=== PATIENT | male | born 1945 | race Caucasian/White ===

== ENCOUNTER 2016-12-09 10:59 | Inpatient (IN) | payer OTHER ==
[2016-12-09 11:26] VITALS: BMI 29.2
--- NOTE | 2016-12-09 11:34 | PDOC ---
History of Present Illness - General Chief Complaint: Wound Infection Stated Complaint: ADMIT FOR PRE-OP, LT FOOT (WOUND CARE SENT) Time Seen by Provider: 12/09/16 11:32 - History of Present Illness Initial Comments: 12/09/16 11:37 Mr. Villa is a 71 year old male with a past medical history significant for PAD, diabetes, HTN, CHF, ESRD on dialysis M-Thu-Thu, CAD with 7 stents, BPH. The pt was scheduled for vascular surgery: angiogram/angioplasty on RLE today but was called yesterday that he needs to have cardiology clearance. The pt contacted his surgeon who referred him to the hospital. The pt is complaining of right foot pain in first, second and third finger and pain in his left heel. He is unable to walk. The pt denies chest pain, palpitations, SOB. He denies abdominal pain, N/V, diarrhea, constipation. He denies dysuria, fever, chills. Past History - Past Medical History Allergies/Adverse Reactions: Allergies Allergy/AdvReac Type Severity Reaction Status Date / Time No Known Allergies Allergy Verified 12/09/16 11:20 Home Medications: Ambulatory Orders Clopidogrel Bisulfate [Plavix -] 75 mg PO DAILY 10/29/15 Aspirin [Indra Chewable Aspirin] 81 mg PO DAILY #30 tab.chew 11/08/15 Isosorbide Dinitrate [Isordil -] 40 mg PO DAILY #30 tablet.er 11/08/15 Metoprolol Tartrate [Lopressor -] 50 mg PO BID #30 tablet 11/08/15 Tamsulosin HCl 0.4 mg PO DAILY #30 cap.er.24h 11/08/15 Glipizide 2.5 mg PO DAILY #30 tablet 11/23/15 Sennosides/Docusate Sodium [Senna S Tablet] 1 each PO DAILY PRN 11/28/15 Lisinopril [Prinivil] 40 mg PO DAILY #30 tablet 08/19/16 Simvastatin [Zocor -] 20 mg PO HS #30 tablet 08/21/16 Becaplermin [Regranex] 15 gm TP DAILY #1 gel..gram. 10/17/16 Collagenase Clostridium Hist. [Santyl] 1 applic TP DAILY 12/08/16 Diphenhydramine HCl [Benadryl -] 25 mg PO Q6H 12/08/16 Famotidine [Pepcid] 20 mg PO PRN 12/08/16 Anemia: No Asthma: No Cancer: No Cardiac Disorders: Yes (7 stents) CVA: No COPD: No CHF: No Dementia: No Diabetes: Yes Dialysis: Yes (RSC catheter) GI Disorders: No Disorders: No HTN: Yes Hypercholesterolemia: Yes Liver Disease: No Seizures: No Thyroid Disease: No - Surgical History Abdominal Surgery: No Appendectomy: No Cardiac Surgery: Yes (card stent x 7) Cholecystectomy: No Lung Surgery: No Neurologic Surgery: No Orthopedic Surgery: No - Immunization History Immunization Up to Date: Yes - Psycho/Social/Smoking Cessation Hx Anxiety: No Suicidal Ideation: No Smoking History: Former smoker Have you smoked in the past 12 months: No Number of Cigarettes Smoked Daily: 6 If you are a former smoker, when did you quit?: 1 year ago Information on smoking cessation initiated: No 'Breaking Loose' booklet given: 11/28/15 Hx Alcohol Use: No Drug/Substance Use Hx: No Substance Use Type: None Hx Substance Use Treatment: No Review of Systems - Review of Systems Able to Perform ROS?: Yes (Maltese speaking ) Comments:: 12/09/16 11:57 REVIEW OF SYSTEMS CONSTITUTIONAL: Absent: fever, chills, diaphoresis, generalized weakness HEENT: Absent: rhinorrhea, nasal congestion, throat pain, throat swelling CARDIOVASCULAR: Absent: chest pain, syncope, palpitations, irregular heart rate, lightheadedness , peripheral edema RESPIRATORY: Absent: cough, shortness of breath, dyspnea with exertion, orthopnea, wheezing, stridor, hemoptysis GASTROINTESTINAL: Absent: abdominal pain, abdominal distension, nausea, vomiting, diarrhea, constipation, melena, hematochezia GENITOURINARY: Absent: dysuria, frequency, urgency, hesitancy, hematuria, flank pain, genital pain MUSCULOSKELETAL: pain in right toe, second and third finger, no pain in left heel Absent: myalgia, arthralgia, joint swelling, back pain, neck pain SKIN: rash, itching in UE B/l Absent: pallor NEUROLOGIC: Absent: headache, focal weakness or paresthesias, dizziness, unsteady gait Is the patient limited Irish proficient: Yes *Physical Exam - Vital Signs Last Vital Signs Temp Pulse Resp BP Pulse Ox 98.3 F 71 19 129/53 98 12/09/16 11:20 12/09/16 11:20 12/09/16 11:20 12/09/16 11:20 12/09/16 11:20 - Physical Exam Comments: 12/09/16 11:59 GENERAL: The patient is awake, alert, and fully oriented, in no acute distress. HEAD: Normal with no signs of trauma. EYES: extraocular movements intact, sclera anicteric, conjunctiva clear. ENT: oropharynx clear without exudates, moist mucous membranes. NECK: Trachea midline, full range of motion, supple. LUNGS: Breath sounds equal, clear to auscultation bilaterally, no wheezes, no crackles, no accessory muscle use. HEART: Regular rate and rhythm, S1, S2 without murmur, rub or gallop. ABDOMEN: Soft, nontender, nondistended, normoactive bowel sounds, no guarding, no rebound. EXTREMITIES: no pulses in LE B/L, warm, erythema in right toe, second finger and dark brown third finger with 1 cm necrotic tissue, all three fingers are swollen and tender to palpation, no crepitus, healing wound in left heel NEUROLOGICAL: Normal speech, no facial asymmetry, gait not observed. PSYCH: Normal mood, normal affect. SKIN: Warm, dry, normal turgor, rash in UE B/L. ED Treatment Course - LABORATORY CBC & Chemistry Diagram: 12/09/16 12:40 12/09/16 12:40 Medical Decision Making - Medical Decision Making 12/09/16 12:04 The pt present to ED for pre-op. We ordered CBC, CMP, UA, PT/PTT, EKG, called cardiology consultation, nephrology consultation. 12/09/16 13:11 Called hospitalist for admission. Dr. Atkins accepted the pt. Waiting for the laboratory results. *DC/Admit/Observation/Transfer Diagnosis at time of Disposition: PAD (peripheral artery disease) - Discharge Dispostion Condition at time of disposition: Good Admit: Yes
--- NOTE | 2016-12-09 12:47 | PDOC ---
Attending Attestation - Resident Resident Name: Jeanette Kline - ED Attending Attestation I have performed the following: I have examined & evaluated the patient, The case was reviewed & discussed with the resident, I agree w/resident's findings & plan - HPI HPI: 12/09/16 12:43 71-year-old male with past medical history of hypertension, CK D on dialysis Thursday and Thursday, he did have a full dialysis yesterday Diabetes hypertension, CAD with 7 stents He also has PAD, and did have a angioplasty on his left lower extremity He does have a chronic heel wound, which has been gradually improving since July with skin grafts and hyperbaric oxygen therapy He also has PAD of his right lower extremity, and is having increasing pain in his toes He is supposed to have angioplasty or stent in his right lower extremity, and a redo of his left lower extremity He was sent in for admission for Dr. Hall for vascular surgery Will need preop clearance and nephrology clearance - Physicial Exam PE: 12/09/16 12:45 Physical exam is significant for Last Vital Signs Temp Pulse Resp BP Pulse Ox 98.3 F 71 19 129/53 98 12/09/16 11:20 12/09/16 11:20 12/09/16 11:20 12/09/16 11:20 12/09/16 11:20 Patient is alert and answering questions, and in no acute distress Right lower extremity 3 toes are cool, tender, and erythematous, with some necrosis starting on the third toe No dorsalis pedis pulses palpable on the right foot Left foot There is a healing heel ulcer The toes are not necrotic No dorsalis pedis pulse is palpable on the left foot (this is chronic as per pt and son, and the pt came from vascular surgery office where he had a pulse exam) - Medical Decision Making 12/09/16 13:48 EKG Normal sinus rhythm 64, normal axis First degree AV block Normal QRS duration Normal QTC There are inferolateral ST-T wave abnormalities, without reciprocal changes When compared to the EKG of 12/04/16 Today's EKG is essentially unchanged from the prior EKG Impression- Right lower extremity chronic limb ischemia with early toe dry gangrene Chronic bilateral lower extremity peripheral arterial disease
--- NOTE | 2016-12-09 12:53 | CON.CARD ---
Consult Consult Specialty:: cardiology Reason for Consultation:: pre-op clearance; (PAD: vascular procedure--for possible right LE angioplasty) - History of Present Illness Chief Complaint: Pt denies chest pain or LE pain presently. History of Present Illness: Mr. Villa is a 71 year old male with a past medical history significant for PAD, diabetes, HTN, diastolic CHF, ESRD on dialysis M-Thu-Thu, CAD with 9 stents , DM, BPH. The pt was scheduled for vascular surgery: angiogram/angioplasty on RLE today but was called yesterday that he needs to have cardiology clearance. The pt contacted his surgeon who referred him to the hospital. The pt is complaining of right foot pain in first, second and third finger and pain in his left heel. He is unable to walk. The pt denies chest pain, palpitations, SOB. He denies abdominal pain, N/V, diarrhea, constipation. He denies dysuria, fever, chills. - History Source History Provided By: Patient, Medical Record - Past Medical History Cardio/Vascular: Yes: CAD, CHF, HTN, Hyperlipdemia, Other (ESRD-->HD; PAD) Renal/: Yes: Renal Inusuff, BPH - Past Surgical History Past Surgical History: Yes: AV Fistula/Graft - Alcohol/Substance Use Hx Alcohol Use: No History of Substance Use: reports: None - Smoking History Smoking history: Former smoker Have you smoked in the past 12 months: No Aproximately how many cigarettes per day: 6 If you are a former smoker, when did you quit?: 1 year ago - Social History Usual Living Arrangement: With Spouse ADL: Family Assistance History of Recent Travel: No Home Medications - Allergies Allergies/Adverse Reactions: Allergies Allergy/AdvReac Type Severity Reaction Status Date / Time No Known Allergies Allergy Verified 12/09/16 11:20 - Home Medications Home Medications: Ambulatory Orders Clopidogrel Bisulfate [Plavix -] 75 mg PO DAILY 10/29/15 Aspirin [Indra Chewable Aspirin] 81 mg PO DAILY #30 tab.chew 11/08/15 Isosorbide Dinitrate [Isordil -] 40 mg PO DAILY #30 tablet.er 11/08/15 Metoprolol Tartrate [Lopressor -] 50 mg PO BID #30 tablet 11/08/15 Tamsulosin HCl 0.4 mg PO DAILY #30 cap.er.24h 11/08/15 Glipizide 2.5 mg PO DAILY #30 tablet 11/23/15 Sennosides/Docusate Sodium [Senna S Tablet] 1 each PO DAILY PRN 11/28/15 Lisinopril [Prinivil] 40 mg PO DAILY #30 tablet 08/19/16 Simvastatin [Zocor -] 20 mg PO HS #30 tablet 08/21/16 Becaplermin [Regranex] 15 gm TP DAILY #1 gel..gram. 10/17/16 Collagenase Clostridium Hist. [Santyl] 1 applic TP DAILY 12/08/16 Diphenhydramine HCl [Benadryl -] 25 mg PO Q6H 12/08/16 Famotidine [Pepcid] 20 mg PO PRN 12/08/16 Review of Systems - Review of Systems Constitutional: reports: No Symptoms Eyes: reports: No Symptoms HENT: reports: No Symptoms Neck: reports: No Symptoms Cardiovascular: reports: No Symptoms Respiratory: reports: No Symptoms Gastrointestinal: reports: No Symptoms Genitourinary: reports: Frequency Breasts: reports: No Symptoms Reported Musculoskeletal: reports: Muscle Weakness Integumentary: reports: No Symptoms Neurological: reports: No Symptoms Endocrine: reports: No Symptoms Hematology/Lymphatic: reports: No Symptoms Psychiatric: reports: No Symptoms - Risk Factors Known Risk Factors: Yes: Age, Diabetes Mellitus, Gender, Hypercholesterolemia, Hypertension, Physical Inactivity, Other (CAD-->multiple stents; PAD; ESRD-->HD) Vital Signs: Vital Signs Temperature 98.3 F 12/09/16 11:20 Pulse Rate 71 12/09/16 11:20 Respiratory Rate 19 12/09/16 11:20 Blood Pressure 129/53 12/09/16 11:20 O2 Sat by Pulse Oximetry (%) 98 12/09/16 11:20 Constitutional: Yes: Well Nourished, Calm Eyes: Yes: WNL HENT: Yes: WNL Neck: Yes: WNL Respiratory: Yes: WNL Gastrointestinal: Yes: Soft Renal/: No: Anuria Cardiovascular: Yes: Regular Rate and Rhythm Heart Sounds: Yes: S1 (split), S2, S4 Murmur: Yes: Systolic Murmur, Grade 1 Musculoskeletal: Yes: Muscle Weakness Extremities: Yes: Cool Edema: No Peripheral Pulses WNL: No Peripheral Pulses: 1+ Left Doralis Pedis, 1+ Right Dorsalis Pedis Integumentary: Yes: WNL Neurological: Yes: WNL Psychiatric: Yes: WNL - Other Data Echo: Report Reviewed (normal LVEF; atheromatous plaque in aortic arch and proximal descending aorta) Ejection Fraction %: LVEF > or = 40 % Imaging - Results EKG: Image Reviewed (NSR; 1st degree AVB; T wave inversions laterally) Problem List - Problems (1) PAD (peripheral artery disease) Code(s): I73.9 - PERIPHERAL VASCULAR DISEASE, UNSPECIFIED (2) BPH (benign prostatic hypertrophy) Code(s): N40.0 - BENIGN PROSTATIC HYPERPLASIA WITHOUT LOWER URINRY TRACT SYMP (3) Coronary artery disease Assessment/Plan: EKG: NSR; 1st degree AVB; T wave changes infero-laterally. TNI 0.02. TENA ECHO 01/2016 (done to r/o endocarditis): normal LVEF; non-mobile large atheromatous plaques in aortic arch and proximal descending aorta; no thrombi in LA or AUNG; mild MR and TR. Recommend: F/u lipid panel; would use high-dose atorvastatin to aggressively lower LDL and triglycerides in light of pt's hx of CAD/PAD, and because of atheromatous plaques. F/u clinical hx from pt, family; and angiograms/PCI to aid in deciding whether to obtain stress MIBI before angiogram/angioplasty of LE. Code(s): I25.10 - ATHSCL HEART DISEASE OF [place] CORONARY ARTERY W/O ANG PCTRS (4) Diabetes mellitus Assessment/Plan: In view of pt's severe vasculopathy, would strongly consider starting empagliaflozin (Jardience) for diabetes because of potential in lowering future cardiac events. Code(s): E11.9 - TYPE 2 DIABETES MELLITUS WITHOUT COMPLICATIONS (5) ESRD (end stage renal disease) Code(s): N18.6 - END STAGE RENAL DISEASE (6) Hyperlipidemia Code(s): E78.5 - HYPERLIPIDEMIA, UNSPECIFIED Qualifiers: Hyperlipidemia type: unspecified Qualified Code(s): E78.5 - Hyperlipidemia, unspecified (7) Hypertension Code(s): I10 - ESSENTIAL (PRIMARY) HYPERTENSION
--- NOTE | 2016-12-09 12:56 | PN ---
Progress Note (short form) - Note Progress Note: Vascular surgery Pt well known to vascular clinic Was scheduled for right lower ext angioplasty yest. However was cancelled due to lack of medical/cardiology clearance. Pt could not get a outpt cardiology appt anywhere and decided to come to the ER. Pt is a dialysis pt, Dr. Humphries is his weather anchor. Will do right lower ext angiogram once pt is cleared by cardiology Will tentatively book for thurs. Kanu Hall DO
[2016-12-09 13:18] LABS: MCH 28.7 pg (25.7-33.7); MCHC 32.3 g/dl (32.0-35.9); MEAN CELL VOLUME 88.8 fl (80-96); MEAN PLT VOLUME 10.1 fl (7.5-11.1); PLATELET COUNT 208 K/MM3 (134-434); RDW 14.8 % (11.9-15.9); WHITE BLOOD COUNT 10.9 K/mm3 (4.0-10.0)
[2016-12-09 13:32] LABS: INR 1.14 (0.82-1.09); PROTHROMBIN TIME (PATIENT) 12.6 SEC (9.98-11.88)
--- NOTE | 2016-12-09 13:41 | PN ---
Teaching Attending Note Name of Resident: Kori Patterson ATTENDING PHYSICIAN STATEMENT I saw and evaluated the patient. I reviewed the resident's note and discussed the case with the resident. I agree with the resident's findings and plan as documented. SUBJECTIVE: The patient is a 71 year old male with a significant past medical history significant of hypertension, hyperlipidemia, coronary artery disease, congestive heart failure, type two diabetes, ESRD (dialysis MWF), previous revascularization of LLE (Dr. Bahena) who was sent to the ED for admission at the encouragement of dr. bahena for anticipated revascularization of RLE due to right 3rd toe pain and purple discoloration, suspected to be early dry gangrene. OBJECTIVE: He is well appearing and in no acute distress Vitals noted DP and PT pulses non-palpable in bilateral lower extremities (this is chronic as per pt and son, and the pt came from vascular surgery office where he had a pulse exam) CBC noted EKG, CXR and chemistries pending ASSESSMENT AND PLAN: -Right lower extremity chronic limb ischemia with early toe dry gangrene Cardiology to see for pre-operative evaluation Dr. Baehna anticipates RLE angiogram followed by intended revascularization Will add CPK and Lactate to assess degree of limb ischemia Will cover with Zosyn and Vancomycin if he develops leukocytosis, fever or worsening toe findings -Renal Dialysis as per renal See resident note for full details
[2016-12-09 13:47] LABS: ALBUMIN 3.4 g/dl (3.4-5.0); BILIRUBIN,TOTAL 0.5 mg/dL (0.2-1.0); CREATININE 5.4 mg/dL (0.7-1.3); TOT PROT 6.5 g/dl (6.4-8.2)
[2016-12-09] MEDS ORDERED: SENNOSIDES/DOCUSATE COMBO (SENNA PLUS) TABLET (UD) PO PRN (14:26)
[2016-12-09] MEDS ORDERED: diphenhydrAMINE HCL 25 MG CAPSULE (FP) PO PRN (14:30)
[2016-12-09 14:59] LABS: TROPONIN I 0.02 ng/ml (0.00-0.05)
[2016-12-09] MEDS: TAMSULOSIN HCL 0.4 MG CAP.ER.24H (FP) PO SCH (16:19)
--- NOTE | 2016-12-09 16:47 | CONSULT ---
Consult Consult Specialty:: Nephrology Reason for Consultation:: ESRD - History of Present Illness Chief Complaint: right leg 3rd digit ulcer History of Present Illness: Pt is a 71 year old male with pmhs of HTN, DM, ESRD, PVD and CAD who was sent in to the hospital for worsening right leg ischemia. He follows with Dr Hall. I was called to evaluate him for HD as he is an ESRD pt. Pt is awake and alert. He denies shortness of breath or palpitations. He last dialyzed yesterday. He denies fevers or chills. - History Source History Provided By: Patient - Past Medical History Cardio/Vascular: Yes: CAD, CHF, HTN, Hyperlipdemia, Other (ESRD-->HD) Renal/: Yes: Renal Inusuff, BPH - Past Surgical History Past Surgical History: Yes: AV Fistula/Graft - Alcohol/Substance Use Hx Alcohol Use: No History of Substance Use: reports: None - Smoking History Smoking history: Former smoker Have you smoked in the past 12 months: No Aproximately how many cigarettes per day: 6 If you are a former smoker, when did you quit?: 1 year ago - Social History Usual Living Arrangement: With Spouse ADL: Family Assistance History of Recent Travel: No Home Medications - Allergies Allergies/Adverse Reactions: Allergies Allergy/AdvReac Type Severity Reaction Status Date / Time No Known Allergies Allergy Verified 12/09/16 11:20 - Home Medications Home Medications: Ambulatory Orders Clopidogrel Bisulfate [Plavix -] 75 mg PO DAILY 10/29/15 Aspirin [Indra Chewable Aspirin] 81 mg PO DAILY #30 tab.chew 11/08/15 Isosorbide Dinitrate [Isordil -] 40 mg PO DAILY #30 tablet.er 11/08/15 Metoprolol Tartrate [Lopressor -] 50 mg PO BID #30 tablet 11/08/15 Tamsulosin HCl 0.4 mg PO DAILY #30 cap.er.24h 11/08/15 Glipizide 2.5 mg PO DAILY #30 tablet 11/23/15 Sennosides/Docusate Sodium [Senna S Tablet] 1 each PO DAILY PRN 11/28/15 Lisinopril [Prinivil] 40 mg PO DAILY #30 tablet 08/19/16 Simvastatin [Zocor -] 20 mg PO HS #30 tablet 08/21/16 Becaplermin [Regranex] 15 gm TP DAILY #1 gel..gram. 10/17/16 Collagenase Clostridium Hist. [Santyl] 1 applic TP DAILY 12/08/16 Diphenhydramine HCl [Benadryl -] 25 mg PO Q6H 12/08/16 Famotidine [Pepcid] 20 mg PO PRN 12/08/16 Family Disease History - Family Disease History Family History: Denies Review of Systems - Review of Systems Constitutional: reports: No Symptoms Eyes: reports: No Symptoms HENT: reports: No Symptoms Neck: reports: No Symptoms Cardiovascular: reports: No Symptoms Respiratory: reports: No Symptoms Gastrointestinal: reports: No Symptoms Genitourinary: reports: No Symptoms Musculoskeletal: reports: Extremity Pain, Other (right leg pain) Integumentary: reports: Erythema Physical Exam Vital Signs: Vital Signs Temperature 97.2 F L 12/09/16 15:09 Pulse Rate 69 12/09/16 15:09 Respiratory Rate 20 12/09/16 15:09 Blood Pressure 162/74 12/09/16 15:09 O2 Sat by Pulse Oximetry (%) 100 12/09/16 15:09 Constitutional: Yes: Calm Eyes: Yes: Conjunctiva Clear HENT: Yes: Atraumatic Neck: Yes: Supple Cardiovascular: Yes: S1, S2 Respiratory: Yes: CTA Bilaterally Gastrointestinal: Yes: Normal Bowel Sounds, Soft Renal/: Yes: WNL Musculoskeletal: Yes: Other (right foot third toe ischemia, left heel ulcer) Edema: Yes Neurological: Yes: Oriented Psychiatric: Yes: Oriented Labs: Laboratory Tests 12/09/16 12/09/16 12/09/16 12:40 12:40 14:11 WBC 10.9 H Hgb 11.9 Sodium 140 Potassium 4.9 Chloride 103 Carbon Dioxide 26 Anion Gap 11 BUN 61 H Creatinine 5.4 H Random Glucose 114 H D Lactic Acid 1.901 Assessment/Plan Current Medications Generic Name Dose Route Start Last Admin Trade Name Freq PRN Reason Stop Dose Admin Atorvastatin Calcium 20 mg 12/09/16 22:00 Lipitor - PO HS JAZ Collagenase 1 applic 12/10/16 10:00 Santyl - TP DAILY JAZ Diphenhydramine HCl 25 mg 12/09/16 14:30 Benadryl - PO Q6H PRN Glipizide 2.5 mg 12/10/16 07:00 Glucotrol - PO DAILY@0700 [facility] Isosorbide Dinitrate 40 mg 12/10/16 10:00 Isordil - PO DAILY [facility] Lisinopril 40 mg 12/10/16 10:00 Prinivil PO DAILY [facility] Metoprolol Tartrate 50 mg 12/09/16 22:00 Lopressor - PO BID [facility] Non-Formulary Medication 15 gm 12/10/16 10:00 Becaplermin [Regranex] TP DAILY [facility] Pantoprazole Sodium 20 mg 12/10/16 10:00 Protonix - PO DAILY [facility] Senna/Docusate Sodium 1 tablet 12/09/16 14:26 Pericolace - PO DAILY PRN CONSTIPATION Tamsulosin HCl 0.4 mg 12/09/16 14:45 12/09/16 16:19 Flomax - PO 0.4 mg DAILY@0830 [facility] Administration Impression 1. ESRD 2. HTN 3. DM 4. CAD 5. BPH 6. CHF 7. DFU 8. PVD Plan - will arrange for HD tomorrow - HD 3:30 heparin 1000, epogen 1600, venofer 50, hectorol 0.5 - resume home meds - cardiology for clearence - vascular surgery eval - will follow - discussed with ER team Dr Humphries
--- NOTE | 2016-12-09 16:47 | HP ---
CHIEF COMPLAINT: "my foot hurts" PCP: HISTORY OF PRESENT ILLNESS: This is a 71 yo m with PMH of severe PAD s/p LLE stent angioplasty, DM, HTN, CHF , ESRD on HD MWF (last one yesterday), CAD s/p 9 stents and BPH who present for cardiac and renal clearance prior to angiogram/angioplasty on RLE scheduled for this . Patient states he feels well but recently has been havng increased pain in his right second and third toes, which prevents him from ambulating. He denies fevr/chills, sweating, discharge from toes, chest pain, palpitations, SOB, abdominal pain, N/V, diarrhea, constipation, dysuria. ER course was notable for: (1) (2) (3) Recent Travel: denies PAST MEDICAL HISTORY: as above PAST SURGICAL HISTORY: as above Social History: lives at home Smoking:denies Alcohol:denies Drugs: denies Family History: HTN, CAD Allergies No Known Allergies Allergy (Verified 12/09/16 11:20) HOME MEDICATIONS: Home Medications Medication Instructions Recorded Clopidogrel Bisulfate [Plavix -] 75 mg PO DAILY 10/29/15 Aspirin [Indra Chewable Aspirin] 81 mg PO DAILY #30 tab.chew 11/08/15 Isosorbide Dinitrate [Isordil -] 40 mg PO DAILY #30 tablet.er 11/08/15 Metoprolol Tartrate [Lopressor -] 50 mg PO BID #30 tablet 11/08/15 Tamsulosin HCl 0.4 mg PO DAILY #30 cap.er.24h 11/08/15 Glipizide 2.5 mg PO DAILY #30 tablet 11/23/15 Sennosides/Docusate Sodium [Senna 1 each PO DAILY PRN 11/28/15 S Tablet] Lisinopril [Prinivil] 40 mg PO DAILY #30 tablet 08/19/16 Simvastatin [Zocor -] 20 mg PO HS #30 tablet 08/21/16 Becaplermin [Regranex] 15 gm TP DAILY #1 gel..gram. 10/17/16 Collagenase Clostridium Hist. 1 applic TP DAILY 12/08/16 [Santyl] Diphenhydramine HCl [Benadryl -] 25 mg PO Q6H 12/08/16 Famotidine [Pepcid] 20 mg PO PRN 12/08/16 REVIEW OF SYSTEMS CONSTITUTIONAL: Absent: fever, chills, diaphoresis, generalized weakness HEENT: Absent: rhinorrhea, nasal congestion, throat pain CARDIOVASCULAR: Absent: chest pain, syncope, palpitations RESPIRATORY: Absent: cough, shortness of breath GASTROINTESTINAL: Absent: abdominal pain, abdominal distension, nausea, vomiting, diarrhea GENITOURINARY: Absent: dysuria MUSCULOSKELETAL: Absent:joint swelling, back pain, neck pain SKIN: Absent: rash, itching, pallor HEMATOLOGIC/IMMUNOLOGIC: Absent: easy bleeding, easy bruising ENDOCRINE: Absent: unexplained weight gain, unexplained weight loss NEUROLOGIC: Absent: headache, focal weakness or paresthesias PSYCHIATRIC: Absent: anxiety, depression PHYSICAL EXAMINATION Vital Signs - 24 hr 12/09/16 12/09/16 15:02 15:09 Temperature 97.2 F L 97.2 F L Pulse Rate 69 69 Respiratory 20 20 Rate Blood Pressure 162/74 162/74 O2 Sat by Pulse 100 Oximetry (%) GENERAL: Awake, alert, and fully oriented, in no acute distress. HEAD: Normal with no signs of trauma. EYES: Pupils equal, round and reactive to light, extraocular movements intact, sclera anicteric, conjunctiva clear. No lid lag. EARS, NOSE, THROAT: Moist mucous membranes. NECK: supple without JVD LUNGS: Breath sounds equal, clear to auscultation bilaterally HEART: Regular rate and rhythm, normal S1 and S2 ABDOMEN: Soft, nontender, not distended, normoactive bowel sounds MUSCULOSKELETAL: No CVA tenderness. UPPER EXTREMITIES: 2+ pulses, warm, well-perfused. No peripheral edema. LOWER EXTREMITIES: LLE not palpable DP, RLE not palpable DP, 3rd toe cool, pale/ purple. no lesion. no edema NEUROLOGICAL: Cranial nerves II-XII grossly intact. Normal speech. PSYCHIATRIC: Cooperative. Good eye contact. Appropriate mood and affect. SKIN: Warm, dry Laboratory Results - last 24 hr 12/09/16 12/09/16 14:11 14:11 Lactic Acid 1.901 Creatine Kinase 62 Troponin I 0.02 ASSESSMENT/PLAN: This is a 71 yo m with PMH of severe PAD s/p LLE stent angioplasty, DM, HTN, CHF , ESRD on HD MWF (last one yesterday), CAD s/p 9 stents and BPH who present for cardiac and renal clearance prior to angiogram/angioplasty on RLE scheduled for this . PAD with early 3rd metatarsal dry gangrene -does not appear infected -no leukocytosis, patient afebrile, no skin break, no discarge, no odor, no cellulitis -if develops signs of infection, fever or leukocytosis will add vanco, zosyn -Vascular on case, angiogram/plasty RLE -Cardio clearance; recent TENA normal EF, mild MR -renal clearance; creat at baseline -f/u CRP, lactate -dilaudid for pain CAD -stable -EKG nonspecific inferolateral t changes -asymptomatic -hold asa, plavix DM -glipizide HTN -lisinopril -metoprolol -isosorbide HLD -lipitor ESRD -HD thu FEN no IVF lytes stable na controlled dm diet PPX: scd, ppi Dispo: [facility] Problem List - Problem (1) PAD (peripheral artery disease) Code(s): I73.9 - PERIPHERAL VASCULAR DISEASE, UNSPECIFIED (2) Acute on chronic combined systolic and diastolic CHF, NYHA class 4 Code(s): I50.43 - ACUTE ON CHRONIC COMBINED SYSTOLIC AND DIASTOLIC HRT FAIL (3) Arrhythmia Code(s): I49.9 - CARDIAC ARRHYTHMIA, UNSPECIFIED (4) BPH (benign prostatic hypertrophy) Code(s): N40.0 - BENIGN PROSTATIC HYPERPLASIA WITHOUT LOWER URINRY TRACT SYMP (5) Chronic kidney disease (CKD) Code(s): N18.9 - CHRONIC KIDNEY DISEASE, UNSPECIFIED Qualifiers: Chronic kidney disease stage: stage 3 (moderate) Qualified Code(s): N18.3 - Chronic kidney disease, stage 3 (moderate) (6) Coronary artery disease Code(s): I25.10 - ATHSCL HEART DISEASE OF [place] CORONARY ARTERY W/O ANG PCTRS (7) Diabetes mellitus Code(s): E11.9 - TYPE 2 DIABETES MELLITUS WITHOUT COMPLICATIONS (8) Diabetic foot ulcers Code(s): E11.621 - TYPE 2 DIABETES MELLITUS WITH FOOT ULCER L97.509 - NON-PRESSURE CHRONIC ULCER OTH PRT UNSP FOOT W UNSP SEVERITY Qualifiers: Diabetes mellitus type: type 2 Laterality: left Qualified Code(s): E11.621 - Type 2 diabetes mellitus with foot ulcer; L97.509 - Non-pressure chronic ulcer of other part of unspecified foot with unspecified severity (9) ESRD (end stage renal disease) Code(s): N18.6 - END STAGE RENAL DISEASE (10) Hyperlipidemia Code(s): E78.5 - HYPERLIPIDEMIA, UNSPECIFIED Qualifiers: Hyperlipidemia type: unspecified Qualified Code(s): E78.5 - Hyperlipidemia, unspecified (11) Hypertension Code(s): I10 - ESSENTIAL (PRIMARY) HYPERTENSION (12) Renal failure Code(s): N19 - UNSPECIFIED KIDNEY FAILURE Visit type - Emergency Visit Emergency Visit: Yes ED Registration Date: 12/09/16 Care time: The patient presented to the Emergency Department on the above date and was hospitalized for further evaluation of their emergent condition. - New Patient This patient is new to me today: Yes Date on this admission: 12/09/16 - Critical Care Critical Care patient: No
[2016-12-09] MEDS ORDERED: HYDROmorphone HCL CARPU-JECT 1 MG/1 ML DISP.SYRIN IVPB PRN (17:07)
--- NOTE | 2016-12-09 17:25 | EKG ---
Test Reason : Blood Pressure : / mmHG Vent. Rate : 064 BPM Atrial Rate : 064 BPM P-R Int : 210 ms QRS Dur : 086 ms QT Int : 442 ms P-R-T Axes : 041 015 151 degrees QTc Int : 455 ms SINUS RHYTHM WITH 1ST DEGREE A-V BLOCK T WAVE ABNORMALITY, CONSIDER INFEROLATERAL ISCHEMIA ABNORMAL ECG WHEN COMPARED WITH ECG OF 04-DEC-2016 12:02, T WAVE VARIATION Confirmed by NAMRATA KOVACS MD ([id number]) on 12/09/2016 5:25:17 PM Referred By: Confirmed By:NAMRATA KOVACS MD
[2016-12-09] MEDS: ATORVASTATIN CA 20 MG TABLET (FP) PO SCH (21:44)
[2016-12-09] MEDS: METOPROLOL TARTRATE 50 MG TABLET (FP) PO SCH (21:44)
[2016-12-10 03:24] LABS: THYROID STIMULATING HORMONE 1.14 uIU/ml (0.358-3.74)
[2016-12-10] MEDS: glipiZIDE 5 MG TABLET (FP) PO SCH (06:54)
[2016-12-10 07:26] LABS: MCH 29.5 pg (25.7-33.7); MCHC 33.4 g/dl (32.0-35.9); MEAN CELL VOLUME 88.2 fl (80-96); MEAN PLT VOLUME 10.2 fl (7.5-11.1); PLATELET COUNT 199 K/MM3 (134-434); RDW 14.4 % (11.9-15.9); WHITE BLOOD COUNT 9.3 K/mm3 (4.0-10.0)
[2016-12-10 07:47] LABS: CALCIUM 7.5 mg/dL (8.5-10.1); CREATININE 6.3 mg/dL (0.7-1.3)
[2016-12-10] MEDS ORDERED: PT OWN MED DRAWER 7, Y5N ONE (09:17)
[2016-12-10] MEDS: METOPROLOL TARTRATE 50 MG TABLET (FP) PO SCH ×2 (09:24→22:53)
[2016-12-10] MEDS: TAMSULOSIN HCL 0.4 MG CAP.ER.24H (FP) PO SCH (09:25)
[2016-12-10] MEDS: PANTOPRAZOLE 20 MG TABLET (FP) PO SCH (09:25)
[2016-12-10] MEDS: CLOPIDOGREL BISULFATE 75 MG TABLET (FP) PO SCH (09:25)
[2016-12-10] MEDS: LISINOPRIL 20 MG TABLET (FP) PO SCH (09:26)
[2016-12-10] MEDS: ASPIRIN 81 MG CHEWABLE TABLETS PO SCH (09:26)
[2016-12-10] MEDS: COLLAGENASE CLOSTRIDIUM HIST. 30 GRAMS TUBE TP SCH (10:12)
--- NOTE | 2016-12-10 10:37 | PN ---
Progress Note (short form) - Note Progress Note: Vascular Surgery Pt seen and examined. Needs right lower ext angiogram. Cardiology to possibly do stress test. Will do angio once cleared. Kanu bahena DO
[2016-12-10] MEDS: ISOSORBIDE DINITRATE 40 MG PO SCH (12:23)
--- NOTE | 2016-12-10 12:36 | PN ---
Progress Note, Physician Chief Complaint: no c/o cp free History of Present Illness: Mr. Villa is a 71 year old male with a past medical history significant for PAD, diabetes, HTN, diastolic CHF, ESRD on dialysis -Thu-Thu, CAD with 9 stents , DM, BPH. The pt was scheduled for vascular surgery: angiogram/angioplasty on RLE today but was called yesterday that he needs to have cardiology clearance. The pt contacted his surgeon who referred him to the hospital. The pt is complaining of right foot pain in first, second and third finger and pain in his left heel. He is unable to walk. The pt denies chest pain, palpitations, SOB. He denies abdominal pain, N/V, diarrhea, constipation. He denies dysuria, fever, chills. 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 He is uncertain whether an angiogram or stress test was done recently, but will bring copies of pt's recent workups to the hospital in the morning (12/10/2016) . - Current Medication List Current Medications: Active Medications Aspirin (Asa -) 81 mg PO DAILY [facility] Last Admin: 12/10/16 09:26 Dose: 81 mg Atorvastatin Calcium (Lipitor -) 20 mg PO HS [facility] Last Admin: 12/09/16 21:44 Dose: 20 mg Clopidogrel Bisulfate (Plavix -) 75 mg PO DAILY [facility] Last Admin: 12/10/16 09:25 Dose: 75 mg Collagenase (Santyl -) 1 applic TP DAILY [facility] Last Admin: 12/10/16 10:12 Dose: 1 applic Diphenhydramine HCl (Benadryl -) 25 mg PO Q6H PRN Epoetin Norman (Epogen -) 2,000 units IVPUSH ONCE ONE Stop: 12/10/16 16:52 Glipizide (Glucotrol -) 2.5 mg PO DAILY@0700 [facility] Last Admin: 12/10/16 06:54 Dose: 2.5 mg Hydromorphone HCl (Dilaudid Injection -) 0.5 mg IVPB Q4H PRN PRN Reason: PAIN Isosorbide Dinitrate (Isordil -) 40 mg PO DAILY [facility] Last Admin: 12/10/16 12:23 Dose: 40 mg Lisinopril (Prinivil) 40 mg PO DAILY [facility] Last Admin: 12/10/16 09:26 Dose: 40 mg Metoprolol Tartrate (Lopressor -) 50 mg PO BID [facility] Last Admin: 12/10/16 09:24 Dose: 50 mg Non-Formulary Medication (Becaplermin [Regranex]) 15 gm TP DAILY [facility] Pantoprazole Sodium (Protonix -) 20 mg PO DAILY [facility] Last Admin: 12/10/16 09:25 Dose: 20 mg Paricalcitol (Zemplar -) 2 mcg IVPUSH ONCE ONE Stop: 12/10/16 16:52 Senna/Docusate Sodium (Pericolace -) 1 tablet PO DAILY PRN PRN Reason: CONSTIPATION Tamsulosin HCl (Flomax -) 0.4 mg PO DAILY@0830 [facility] Last Admin: 12/10/16 09:25 Dose: 0.4 mg - Objective Vital Signs: Vital Signs Temperature 97.9 F 12/10/16 06:00 Pulse Rate 66 12/10/16 06:00 Respiratory Rate 18 12/10/16 09:00 Blood Pressure 158/62 12/10/16 06:00 O2 Sat by Pulse Oximetry (%) 99 12/10/16 09:00 Eyes: Yes: WNL, Conjunctiva Clear, EOM Intact HENT: Yes: WNL, Atraumatic, Normocephalic Neck: Yes: WNL, Supple, Trachea Midline Cardiovascular: Yes: WNL, Regular Rate and Rhythm Respiratory: Yes: WNL, Regular, CTA Bilaterally Gastrointestinal: Yes: WNL, Normal Bowel Sounds Genitourinary: Yes: WNL Musculoskeletal: Yes: WNL Extremities: Yes: WNL Edema: No Integumentary: Yes: WNL Neurological: Yes: WNL, Alert, Oriented ...Motor Strength: WNL Psychiatric: Yes: WNL Labs: CBC, BMP 12/10/16 06:00 12/10/16 06:00 INR, PTT INR 1.14 (0.82-1.09) 12/09/16 12:40 Assessment/Plan (1) PAD (peripheral artery disease) Code(s): I73.9 - PERIPHERAL VASCULAR DISEASE, UNSPECIFIED (2) BPH (benign prostatic hypertrophy) Code(s): N40.0 - BENIGN PROSTATIC HYPERPLASIA WITHOUT LOWER URINRY TRACT SYMP (3) Coronary artery disease Assessment/Plan: EKG: NSR; 1st degree AVB; T wave changes infero-laterally. TNI 0.02. TENA ECHO 01/2016 (done to r/o endocarditis): normal LVEF; non-mobile large atheromatous plaques in aortic arch and proximal descending aorta; no thrombi in LA or AUNG; mild MR and TR. Recommend: F/u lipid panel; would use high-dose atorvastatin to aggressively lower LDL and triglycerides in light of pt's hx of CAD/PAD, and because of atheromatous plaques. F/u clinical hx from pt, family; and angiograms/PCI to aid in deciding whether to obtain stress MIBI before angiogram/angioplasty of LE. Code(s): I25.10 - ATHSCL HEART DISEASE OF [place] CORONARY ARTERY W/O ANG PCTRS (4) Diabetes mellitus Assessment/Plan: (5) ESRD (end stage renal disease) Code(s): N18.6 - END STAGE RENAL DISEASE (6) Hyperlipidemia Code(s): E78.5 - HYPERLIPIDEMIA, UNSPECIFIED Qualifiers: Hyperlipidemia type: unspecified Qualified Code(s): E78.5 - Hyperlipidemia, unspecified (7) Hypertension Code(s): I10 - ESSENTIAL (PRIMARY) HYPERTENSION
--- NOTE | 2016-12-10 12:41 | PN ---
Progress Note, Physician History of Present Illness: Pt seen and examined at bedside. He is awake and alert. He denies shortness of breath. - Current Medication List Current Medications: Active Medications Aspirin (Asa -) 81 mg PO DAILY [facility] Last Admin: 12/10/16 09:26 Dose: 81 mg Atorvastatin Calcium (Lipitor -) 20 mg PO HS [facility] Last Admin: 12/09/16 21:44 Dose: 20 mg Clopidogrel Bisulfate (Plavix -) 75 mg PO DAILY [facility] Last Admin: 12/10/16 09:25 Dose: 75 mg Collagenase (Santyl -) 1 applic TP DAILY [facility] Last Admin: 12/10/16 10:12 Dose: 1 applic Diphenhydramine HCl (Benadryl -) 25 mg PO Q6H PRN Epoetin Norman (Epogen -) 2,000 units IVPUSH ONCE ONE Stop: 12/10/16 16:52 Glipizide (Glucotrol -) 2.5 mg PO DAILY@0700 [facility] Last Admin: 12/10/16 06:54 Dose: 2.5 mg Hydromorphone HCl (Dilaudid Injection -) 0.5 mg IVPB Q4H PRN PRN Reason: PAIN Isosorbide Dinitrate (Isordil -) 40 mg PO DAILY [facility] Last Admin: 12/10/16 12:23 Dose: 40 mg Lisinopril (Prinivil) 40 mg PO DAILY [facility] Last Admin: 12/10/16 09:26 Dose: 40 mg Metoprolol Tartrate (Lopressor -) 50 mg PO BID [facility] Last Admin: 12/10/16 09:24 Dose: 50 mg Non-Formulary Medication (Becaplermin [Regranex]) 15 gm TP DAILY [facility] Pantoprazole Sodium (Protonix -) 20 mg PO DAILY [facility] Last Admin: 12/10/16 09:25 Dose: 20 mg Paricalcitol (Zemplar -) 2 mcg IVPUSH ONCE ONE Stop: 12/10/16 16:52 Senna/Docusate Sodium (Pericolace -) 1 tablet PO DAILY PRN PRN Reason: CONSTIPATION Tamsulosin HCl (Flomax -) 0.4 mg PO DAILY@0830 [facility] Last Admin: 12/10/16 09:25 Dose: 0.4 mg - Objective Vital Signs: Vital Signs Temperature 97.9 F 12/10/16 06:00 Pulse Rate 66 12/10/16 06:00 Respiratory Rate 18 12/10/16 09:00 Blood Pressure 158/62 12/10/16 06:00 O2 Sat by Pulse Oximetry (%) 99 12/10/16 09:00 Constitutional: Yes: Calm Eyes: Yes: Conjunctiva Clear HENT: Yes: Atraumatic Neck: Yes: Supple Cardiovascular: Yes: S1, S2 Respiratory: Yes: CTA Bilaterally Gastrointestinal: Yes: Soft Genitourinary: Yes: WNL Musculoskeletal: Yes: Other (left leg ulcer) Edema: Yes Neurological: Yes: Oriented Psychiatric: Yes: Oriented Labs: CBC, BMP 12/10/16 06:00 12/10/16 06:00 INR, PTT INR 1.14 (0.82-1.09) 12/09/16 12:40 Problem List - Problems (1) PAD (peripheral artery disease) Code(s): I73.9 - PERIPHERAL VASCULAR DISEASE, UNSPECIFIED (2) Anemia Code(s): D64.9 - ANEMIA, UNSPECIFIED (3) Diabetes mellitus Code(s): E11.9 - TYPE 2 DIABETES MELLITUS WITHOUT COMPLICATIONS (4) ESRD (end stage renal disease) Code(s): N18.6 - END STAGE RENAL DISEASE (5) Hypertension Code(s): I10 - ESSENTIAL (PRIMARY) HYPERTENSION Assessment/Plan Current Medications Generic Name Dose Route Start Last Admin Trade Name Freq PRN Reason Stop Dose Admin Aspirin 81 mg 12/10/16 10:00 12/10/16 09:26 Asa - PO 81 mg DAILY [facility] Administration Atorvastatin Calcium 20 mg 12/09/16 22:00 12/09/16 21:44 Lipitor - PO 20 mg HS [facility] Administration Clopidogrel Bisulfate 75 mg 12/10/16 10:00 12/10/16 09:25 Plavix - PO 75 mg DAILY [facility] Administration Collagenase 1 applic 12/10/16 10:00 12/10/16 10:12 Santyl - TP 1 applic DAILY [facility] Administration Diphenhydramine HCl 25 mg 12/09/16 14:30 Benadryl - PO Q6H PRN Epoetin Norman 2,000 units 12/10/16 16:51 Epogen - IVPUSH 12/10/16 16:52 ONCE ONE Glipizide 2.5 mg 12/10/16 07:00 12/10/16 06:54 Glucotrol - PO 2.5 mg DAILY@0700 [facility] Administration Hydromorphone HCl 0.5 mg 12/09/16 17:07 Dilaudid Injection - IVPB Q4H PRN PAIN Isosorbide Dinitrate 40 mg 12/10/16 10:00 12/10/16 12:23 Isordil - PO 40 mg DAILY [facility] Administration Lisinopril 40 mg 12/10/16 10:00 12/10/16 09:26 Prinivil PO 40 mg DAILY [facility] Administration Metoprolol Tartrate 50 mg 12/09/16 22:00 12/10/16 09:24 Lopressor - PO 50 mg BID [facility] Administration Non-Formulary Medication 15 gm 12/10/16 10:00 Becaplermin [Regranex] TP DAILY [facility] Pantoprazole Sodium 20 mg 12/10/16 10:00 12/10/16 09:25 Protonix - PO 20 mg DAILY [facility] Administration Paricalcitol 2 mcg 12/10/16 16:51 Zemplar - IVPUSH 12/10/16 16:52 ONCE ONE Senna/Docusate Sodium 1 tablet 12/09/16 14:26 Pericolace - PO DAILY PRN [facility]IP[facility] Tamsulosin HCl 0.4 mg 12/09/16 14:45 12/10/16 09:25 Flomax - PO 0.4 mg DAILY@0830 [facility] Administration Impression 1. ESRD 2. HTN 3. DM 4. CAD 5. BPH 6. CHF 7. DFU 8. PVD Plan - HD today - cardiac workup is in progress - vascular input appreciated - HD 3:30 heparin 1000, epogen 1600, venofer 50, hectorol 0.5 - vascular surgery eval - will follow Dr Humphries
--- NOTE | 2016-12-10 16:10 | PN ---
Physical Exam: SUBJECTIVE: Patient seen and examined Resting in bed NAD. no acute events. afebrile and hemodynamiclly stable ( hypertensive 158/62). Complains of stable pain in R 3rd toe and some tenderness in R 2nd and 4th toes. Some pain In left heel. Denies f/c, diaphoresis, chest pain, sob, palpitations, abd pain, n/v, diarrhea constipation or dysuria. OBJECTIVE: Vital Signs Period Temp Pulse Resp BP Sys/Kidd Pulse Ox Last 24 Hr 97.5 F-98.5 F 66-72 18-20 144-158/60-68 99-100 GENERAL: Awake, alert, and fully oriented, in no acute distress. HEAD: Normal with no signs of trauma. EYES: Pupils equal, round and reactive to light, extraocular movements intact, sclera anicteric, conjunctiva clear. No lid lag. EARS, NOSE, THROAT: Moist mucous membranes. NECK: supple without JVD LUNGS: Breath sounds equal, clear to auscultation bilaterally HEART: Regular rate and rhythm, normal S1 and S2 ABDOMEN: Soft, nontender, not distended, normoactive bowel sounds MUSCULOSKELETAL: No CVA tenderness. UPPER EXTREMITIES: 2+ pulses, warm, well-perfused. No peripheral edema. LOWER EXTREMITIES: LLE not palpable DP, RLE not palpable DP, 3rd toe cool, pale/ purple. no lesion. no edema. L calcaneal ulcer wrapped in clean curlex. NEUROLOGICAL: Cranial nerves II-XII grossly intact. Normal speech. PSYCHIATRIC: Cooperative. Good eye contact. Appropriate mood and affect. SKIN: Warm, dry Laboratory Results - last 24 hr 12/10/16 12/10/16 12/10/16 06:00 06:00 06:00 WBC 9.3 RBC 3.58 L Hgb 10.6 L D Hct 31.6 L MCV 88.2 MCHC 33.4 RDW 14.4 Plt Count 199 MPV 10.2 Sodium 139 Potassium 5.5 H Chloride 100 Carbon Dioxide 26 Anion Gap 13 BUN 82 H D Creatinine 6.3 H POC Glucometer Random Glucose 111 H Calcium 7.5 L Blood Type A POSITIVE Antibody Screen Negative 12/10/16 12/10/16 06:28 11:38 WBC RBC Hgb Hct MCV MCHC RDW Plt Count MPV Sodium Potassium Chloride Carbon Dioxide Anion Gap BUN Creatinine POC Glucometer 105 96 Random Glucose Calcium Blood Type Antibody Screen Active Medications Generic Name Dose Route Start Last Admin Trade Name Freq PRN Reason Stop Dose Admin Aspirin 81 mg 12/10/16 10:00 12/10/16 09:26 Asa - PO 81 mg DAILY [facility] Administration Atorvastatin Calcium 20 mg 12/09/16 22:00 12/09/16 21:44 Lipitor - PO 20 mg HS [facility] Administration Clopidogrel Bisulfate 75 mg 12/10/16 10:00 12/10/16 09:25 Plavix - PO 75 mg DAILY [facility] Administration Collagenase 1 applic 12/10/16 10:00 12/10/16 10:12 Santyl - TP 1 applic DAILY [facility] Administration Diphenhydramine HCl 25 mg 12/09/16 14:30 Benadryl - PO Q6H PRN Epoetin Norman 2,000 units 12/10/16 16:30 Epogen - IVPUSH 12/10/16 16:31 ONCE ONE Glipizide 2.5 mg 12/10/16 07:00 12/10/16 06:54 Glucotrol - PO 2.5 mg DAILY@0700 [facility] Administration Hydromorphone HCl 0.5 mg 12/09/16 17:07 Dilaudid Injection - IVPB Q4H PRN PAIN Isosorbide Dinitrate 40 mg 12/10/16 10:00 12/10/16 12:23 Isordil - PO 40 mg DAILY [facility] Administration Lisinopril 40 mg 12/10/16 10:00 12/10/16 09:26 Prinivil PO 40 mg DAILY [facility] Administration Metoprolol Tartrate 50 mg 12/09/16 22:00 12/10/16 09:24 Lopressor - PO 50 mg BID [facility] Administration Non-Formulary Medication 15 gm 12/10/16 10:00 Becaplermin [Regranex] TP DAILY [facility] Pantoprazole Sodium 20 mg 12/10/16 10:00 12/10/16 09:25 Protonix - PO 20 mg DAILY [facility] Administration Paricalcitol 2 mcg 12/10/16 16:30 Zemplar - IVPUSH 12/10/16 16:31 ONCE ONE Senna/Docusate Sodium 1 tablet 12/09/16 14:26 Pericolace - PO DAILY PRN [facility] Tamsulosin HCl 0.4 mg 12/09/16 14:45 12/10/16 09:25 Flomax - PO 0.4 mg DAILY@0830 [facility] Administration ASSESSMENT/PLAN: This is a 71 yo m with PMH of severe PAD s/p LLE stent angioplasty, DM, HTN, CHF , ESRD on HD MWF (last one yesterday), CAD s/p 9 stents and BPH who present for cardiac and renal clearance prior to angiogram/angioplasty on RLE scheduled for this th. 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 -renal clearance; creat at baseline -dilaudid for pain CAD -stable -EKG nonspecific inferolateral t changes -asymptomatic -continue asa, plavix DM -glipizide HTN -lisinopril -metoprolol -isosorbide HLD -lipitor ESRD -HD wed FEN no IVF lytes stable na controlled dm diet PPX: scd, ppi Dispo: [facility] Problem List - Problems (1) PAD (peripheral artery disease) Code(s): I73.9 - PERIPHERAL VASCULAR DISEASE, UNSPECIFIED (2) Acute on chronic combined systolic and diastolic CHF, NYHA class 4 Code(s): I50.43 - ACUTE ON CHRONIC COMBINED SYSTOLIC AND DIASTOLIC HRT FAIL (3) Arrhythmia Code(s): I49.9 - CARDIAC ARRHYTHMIA, UNSPECIFIED (4) BPH (benign prostatic hypertrophy) Code(s): N40.0 - BENIGN PROSTATIC HYPERPLASIA WITHOUT LOWER URINRY TRACT SYMP (5) Chronic kidney disease (CKD) Code(s): N18.9 - CHRONIC KIDNEY DISEASE, UNSPECIFIED Qualifiers: Chronic kidney disease stage: stage 3 (moderate) Qualified Code(s): N18.3 - Chronic kidney disease, stage 3 (moderate) (6) Coronary artery disease Code(s): I25.10 - ATHSCL HEART DISEASE OF [place] CORONARY ARTERY W/O ANG PCTRS (7) Diabetes mellitus Code(s): E11.9 - TYPE 2 DIABETES MELLITUS WITHOUT COMPLICATIONS (8) Diabetic foot ulcers Code(s): E11.621 - TYPE 2 DIABETES MELLITUS WITH FOOT ULCER L97.509 - NON-PRESSURE CHRONIC ULCER OTH PRT UNSP FOOT W UNSP SEVERITY Qualifiers: Diabetes mellitus type: type 2 Laterality: left (9) ESRD (end stage renal disease) Code(s): N18.6 - END STAGE RENAL DISEASE (10) Hyperlipidemia Code(s): E78.5 - HYPERLIPIDEMIA, UNSPECIFIED Qualifiers: Hyperlipidemia type: unspecified Qualified Code(s): E78.5 - Hyperlipidemia, unspecified (11) Hypertension Code(s): I10 - ESSENTIAL (PRIMARY) HYPERTENSION (12) Renal failure Code(s): N19 - UNSPECIFIED KIDNEY FAILURE Visit type - Emergency Visit Emergency Visit: Yes ED Registration Date: 12/09/16 Care time: The patient presented to the Emergency Department on the above date and was hospitalized for further evaluation of their emergent condition. - New Patient This patient is new to me today: No - Critical Care Critical Care patient: No - Discharge Referral Referred to [id number] No
[2016-12-10] MEDS ORDERED: PARICALCITOL 5 MCG/ML VIAL IVPUSH ONE (16:30)
[2016-12-10] MEDS ORDERED: EPOETIN ALFA 2,000 UNITS/1 ML VIAL IVPUSH ONE (16:30)
--- NOTE | 2016-12-10 18:35 | PN ---
Teaching Attending Note Name of Resident: Kori Patterson ATTENDING PHYSICIAN STATEMENT I saw and evaluated the patient. I reviewed the resident's note and discussed the case with the resident. I agree with the resident's findings and plan as documented. SUBJECTIVE: pain in R foot , no fever ro chills, no SOB or CP OBJECTIVE: NAD Cv : RRR Lungs : CTAB ext : R 3rd toe with purpulish color and TTP , DP, and PT not felt on both sides . L heel with ulcer covered with ointment ASSESSMENT AND PLAN: 71 y/o man from [place] with PMH significant for HTN , hyperlipidemia, CAD , CHF , type two diabetes, ESRD ( MWF), previous revascularization of LLE who presented with pain in R 3rd toe and was found to have a dry gangrene 1- R 3rd toe dry gangrene : cont ASA and plavix . appreciate vascular help needs angio and revascularization of R side family did not get old records yet Regardless of his record, pt appear to be at intermediate risk for this this vascular procedure . card following for possible stress before sx dilaudid fro pain 2- ESRD : HD MWF this will correct hyperkalemia 3- CAD, and h/f CHF : cont BB , high potency statin in place of simvastatin cont imdur and lisinopril dispo :L HLOC
[2016-12-10] MEDS: ATORVASTATIN CA 20 MG TABLET (FP) PO SCH (22:53)
[2016-12-11] MEDS: BECAPLERMIN TP SCH ×2 (00:25→21:05)
[2016-12-11] MEDS: glipiZIDE 5 MG TABLET (FP) PO SCH (06:14)
[2016-12-11] MEDS ORDERED: PT OWN MED DRAWER 7, Y5N ONE (09:25)
[2016-12-11] MEDS: LISINOPRIL 20 MG TABLET (FP) PO SCH (09:31)
[2016-12-11] MEDS: ISOSORBIDE DINITRATE 40 MG PO SCH (09:31)
--- NOTE | 2016-12-11 09:59 | PN ---
Teaching Attending Note Name of Resident: Kori Pattesron ATTENDING PHYSICIAN STATEMENT I saw and evaluated the patient. I reviewed the resident's note and discussed the case with the resident. I agree with the resident's findings and plan as documented. SUBJECTIVE: no fever or chills , no abd pain , no CP , no SOB , no palpitations . cont to have pain in R foot toes OBJECTIVE: pain in R foot , no fever or chills, no SOB or CP OBJECTIVE: NAD Cv : RRR Lungs: CTAB Ext : R 3rd toe with purpulish color and TTP of the 2nd, 3rd, and 4th toes * was present yesterday too ) , DP, and PT not felt on both sides . L heel with ulcer was not examined today ASSESSMENT AND PLAN: 71 y/o man from [place] with PMH significant for HTN , hyperlipidemia, CAD , CHF , type two diabetes, ESRD ( MWF), previous revascularization of LLE who presented with pain in R 3rd toe and was found to have a dry gangrene 1- R 3rd toe dry gangrene : cont ASA and plavix . will need angiogram and revascularization Previous records reviewed, last cath in 2000 , with patent RCA stent , patent LAD stent and occluded diagonal artery . These results were d/w Dr. Pierce, will obtain EKG this am and depending on results might or might not stress patient today . 2- h/o CAD : records reviewed as above. has no anginal sx now. cont cardiac meds , BB , Imdur , ASA and plavix ( hold BB this am in case a stress test is needed ) cont statins and lisinopril 3- ESRD : HD MWF repeat labs today 4- h/o CHF : euvolemic at this time. HD managed volume
[2016-12-11 11:00] LABS: BASOPHIL 0.5 % (0-2.0); EOSINOPHIL 10.5 % (0-4.5); MCH 28.9 pg (25.7-33.7); MCHC 32.8 g/dl (32.0-35.9); PLATELET COUNT 202 K/MM3 (134-434); RDW 14.6 % (11.9-15.9); WHITE BLOOD COUNT 8.6 K/mm3 (4.0-10.0)
--- NOTE | 2016-12-11 11:01 | PN ---
Progress Note, Physician Chief Complaint: Pt alert; at beside; pt is asymptomatic except for intense pain in LE. History of Present Illness: Mr. Villa is a 71 year old male with a past medical history significant for PAD, diabetes, HTN, diastolic CHF, ESRD on dialysis M-Thu-Thu, CAD with 9 stents , DM, BPH. The pt was scheduled for vascular surgery: angiogram/angioplasty on RLE today but was called yesterday that he needs to have cardiology clearance. The pt contacted his surgeon who referred him to the hospital. The pt is complaining of right foot pain in first, second and third finger and pain in his left heel. He is unable to walk. The pt denies chest pain, palpitations, SOB. He denies abdominal pain, N/V, diarrhea, constipation. He denies dysuria, fever, chills. - Current Medication List Current Medications: Active Medications Aspirin (Asa -) 81 mg PO DAILY [facility] Last Admin: 12/10/16 09:26 Dose: 81 mg Atorvastatin Calcium (Lipitor -) 40 mg PO HS [facility] Clopidogrel Bisulfate (Plavix -) 75 mg PO DAILY [facility] Last Admin: 12/10/16 09:25 Dose: 75 mg Collagenase (Santyl -) 1 applic TP DAILY [facility] Last Admin: 12/10/16 10:12 Dose: 1 applic Diphenhydramine HCl (Benadryl -) 25 mg PO Q6H PRN Glipizide (Glucotrol -) 2.5 mg PO DAILY@0700 [facility] Last Admin: 12/11/16 06:14 Dose: Not Given Hydromorphone HCl (Dilaudid Injection -) 0.5 mg IVPB Q4H PRN PRN Reason: PAIN Isosorbide Dinitrate (Isordil -) 40 mg PO DAILY [facility] Last Admin: 12/11/16 09:31 Dose: 40 mg Lisinopril (Prinivil) 40 mg PO DAILY [facility] Last Admin: 12/11/16 09:31 Dose: 40 mg Metoprolol Tartrate (Lopressor -) 50 mg PO BID [facility] Last Admin: 12/10/16 22:53 Dose: 50 mg Non-Formulary Medication (Becaplermin [Regranex]) 0 gm TP DAILY [facility] Last Admin: 12/11/16 00:25 Dose: Not Given Pantoprazole Sodium (Protonix -) 20 mg PO DAILY [facility] Last Admin: 12/10/16 09:25 Dose: 20 mg Senna/Docusate Sodium (Pericolace -) 1 tablet PO DAILY PRN PRN Reason: CONSTIPATION Tamsulosin HCl (Flomax -) 0.4 mg PO DAILY@0830 [facility] Last Admin: 12/10/16 09:25 Dose: 0.4 mg - Objective Vital Signs: Vital Signs Temperature 98.4 F 12/11/16 09:10 Pulse Rate 74 12/11/16 09:10 Respiratory Rate 18 12/11/16 09:10 Blood Pressure 160/68 12/11/16 09:10 O2 Sat by Pulse Oximetry (%) 96 12/10/16 23:00 Constitutional: Yes: Calm Eyes: Yes: WNL HENT: Yes: WNL Labs: CBC, BMP 12/10/16 06:00 12/10/16 06:00 INR, PTT INR 1.14 (0.82-1.09) 12/09/16 12:40 Problem List - Problems (1) PAD (peripheral artery disease) Assessment/Plan: Thanks to Dr. Valderrama for help with translation (Hebrew) and clinical evaluation. Pt denies having had chest pain since last coronary stent in 2010. Pt had been walking a few blocks and a flight of stairs daily until the past 6 weeks; no chest pain; occasional mild MURGUIA. EKG: no significant changes from 2016 (lateral wall T wave inversions). TENA 2016: normal LVEF. From a cardiac perspective, there are no absolute contraindications for Mr. Villa to undergo Peripheral vascular intervention (angiogram/angioplasty). Code(s): I73.9 - PERIPHERAL VASCULAR DISEASE, UNSPECIFIED (2) BPH (benign prostatic hypertrophy) Code(s): N40.0 - BENIGN PROSTATIC HYPERPLASIA WITHOUT LOWER URINRY TRACT SYMP (3) Coronary artery disease Assessment/Plan: EKG: NSR; 1st degree AVB; T wave changes infero-laterally. TNI 0.02. TENA ECHO 01/2016 (done to r/o endocarditis): normal LVEF; non-mobile large atheromatous plaques in aortic arch and proximal descending aorta; no thrombi in LA or AUNG; mild MR and TR. Recommend: LDL cholesterol > 100 mg/dL; would use high-dose atorvastatin to aggressively lower LDL and triglycerides in light of pt's hx of CAD/PAD, and because of atheromatous plaques. Notes from prior angiograms studied multivessel disease, with PCI of LAD and RCA ; no further stents since 2010 (pt had reported stress MIBI since then, but did not find report); no chest pain since 2010, and pt has remained farily active physically since then until the past 6 weeks, when intense LE pain stopped him. Code(s): I25.10 - ATHSCL HEART DISEASE OF [place] CORONARY ARTERY W/O ANG PCTRS (4) Diabetes mellitus Code(s): E11.9 - TYPE 2 DIABETES MELLITUS WITHOUT COMPLICATIONS (5) ESRD (end stage renal disease) Code(s): N18.6 - END STAGE RENAL DISEASE (6) Hyperlipidemia Code(s): E78.5 - HYPERLIPIDEMIA, UNSPECIFIED Qualifiers: Hyperlipidemia type: unspecified Qualified Code(s): E78.5 - Hyperlipidemia, unspecified (7) Hypertension Code(s): I10 - ESSENTIAL (PRIMARY) HYPERTENSION
[2016-12-11 11:19] LABS: CALCIUM 7.4 mg/dL (8.5-10.1); COCKROFT - GAULT 16.29; CREATININE 4.7 mg/dL (0.7-1.3)
[2016-12-11] MEDS: TAMSULOSIN HCL 0.4 MG CAP.ER.24H (FP) PO SCH (11:31)
[2016-12-11] MEDS: ASPIRIN 81 MG CHEWABLE TABLETS PO SCH (11:31)
[2016-12-11] MEDS: METOPROLOL TARTRATE 50 MG TABLET (FP) PO SCH ×2 (11:32→22:26)
[2016-12-11] MEDS: CLOPIDOGREL BISULFATE 75 MG TABLET (FP) PO SCH ×2 (11:32→17:00)
[2016-12-11] MEDS: PANTOPRAZOLE 20 MG TABLET (FP) PO SCH (11:32)
--- NOTE | 2016-12-11 12:36 | EKG ---
Test Reason : Blood Pressure : / mmHG Vent. Rate : 070 BPM Atrial Rate : 070 BPM P-R Int : 248 ms QRS Dur : 090 ms QT Int : 456 ms P-R-T Axes : 055 015 138 degrees QTc Int : 492 ms SINUS RHYTHM WITH 1ST DEGREE A-V BLOCK MINIMAL VOLTAGE CRITERIA FOR LVH, MAY BE NORMAL VARIANT T WAVE ABNORMALITY, CONSIDER INFEROLATERAL ISCHEMIA PROLONGED QT ABNORMAL ECG WHEN COMPARED WITH ECG OF 09-DEC-2016 13:42, NO SIGNIFICANT CHANGE WAS FOUND Confirmed by BENNETT DILL MD ([id number]) on 12/11/2016 12:35:48 PM Referred By: KRYSTAL SAXENA Confirmed By:BENNETT DILL MD
[2016-12-11] MEDS ORDERED: HEPARIN NA (PORCINE) 5,000 UNITS/ML 1ML VIAL ONE ×2 (13:09→15:02)
[2016-12-11] MEDS ORDERED: LIDOCAINE HCL 1%, 10 MG/ML (20ML VIAL) ONE (13:09)
[2016-12-11] MEDS ORDERED: PROMETHAZINE HCL 25 MG/1 ML VIAL IVPUSH PRN ×2 (13:32→16:19)
[2016-12-11] MEDS ORDERED: ONDANSETRON 4 MG/2 ML VIAL IVPUSH PRN ×2 (13:32→16:19)
[2016-12-11] MEDS ORDERED: SODIUM CHLORIDE 1,000 ML IV SCH (13:45)
[2016-12-11] MEDS ORDERED: ceFAZolin SODIUM 1 GM VIAL IVPB ONE (14:12)
[2016-12-11] MEDS ORDERED: LIDOCAINE HCL 1%, 10 MG/ML (20ML VIAL) IJ ONE (14:15)
--- NOTE | 2016-12-11 15:16 | PN ---
Progress Note, Physician History of Present Illness: Pt seen and examined at bedside. He is going to the OR today. He denies chest pain or shortness of breath. - Current Medication List Current Medications: Active Medications Aspirin (Asa -) 81 mg PO DAILY [facility] Last Admin: 12/11/16 11:31 Dose: Not Given Atorvastatin Calcium (Lipitor -) 40 mg PO HS [facility] Clopidogrel Bisulfate (Plavix -) 75 mg PO DAILY [facility] Last Admin: 12/11/16 11:32 Dose: Not Given Collagenase (Santyl -) 1 applic TP DAILY [facility] Last Admin: 12/10/16 10:12 Dose: 1 applic Diphenhydramine HCl (Benadryl -) 25 mg PO Q6H PRN Fentanyl (Sublimaze Injection -) 50 mcg IVPUSH [id number] PRN PRN Reason: PAIN Stop: 12/14/16 13:33 Glipizide (Glucotrol -) 2.5 mg PO DAILY@0700 [facility] Last Admin: 12/11/16 06:14 Dose: Not Given Hydromorphone HCl (Dilaudid Injection -) 0.5 mg IVPB Q4H PRN PRN Reason: PAIN Sodium Chloride (Normal Saline -) 1,000 mls @ 42 mls/hr IV ASDIR [facility] Isosorbide Dinitrate (Isordil -) 40 mg PO DAILY [facility] Last Admin: 12/11/16 09:31 Dose: 40 mg Lisinopril (Prinivil) 40 mg PO DAILY [facility] Last Admin: 12/11/16 09:31 Dose: 40 mg Metoprolol Tartrate (Lopressor -) 50 mg PO BID [facility] Last Admin: 12/11/16 11:32 Dose: Not Given Non-Formulary Medication (Becaplermin [Regranex]) 0 gm TP DAILY [facility] Last Admin: 12/11/16 00:25 Dose: Not Given Ondansetron HCl (Zofran Injection) 4 mg IVPUSH Q6H PRN PRN Reason: NAUSEA AND/OR VOMITING Stop: 12/11/16 19:33 Pantoprazole Sodium (Protonix -) 20 mg PO DAILY [facility] Last Admin: 12/11/16 11:32 Dose: Not Given Promethazine HCl (Phenergan Injection -) 12.5 mg IVPUSH Q6H PRN PRN Reason: NAUSEA Stop: 12/11/16 19:33 Senna/Docusate Sodium (Pericolace -) 1 tablet PO DAILY PRN PRN Reason: CONSTIPATION Tamsulosin HCl (Flomax -) 0.4 mg PO DAILY@0830 [facility] Last Admin: 12/11/16 11:31 Dose: Not Given - Objective Vital Signs: Vital Signs Temperature 98.4 F 12/11/16 09:10 Pulse Rate 74 12/11/16 09:10 Respiratory Rate 18 12/11/16 09:10 Blood Pressure 160/68 12/11/16 09:10 O2 Sat by Pulse Oximetry (%) 100 12/11/16 09:10 Constitutional: Yes: Calm Eyes: Yes: Conjunctiva Clear HENT: Yes: Atraumatic Neck: Yes: Supple Cardiovascular: Yes: S1, S2 Respiratory: Yes: CTA Bilaterally Gastrointestinal: Yes: Soft Genitourinary: Yes: WNL Musculoskeletal: Yes: WNL Edema: Yes Edema: LLE: Trace, RLE: Trace Wound/Incision: Yes: Dressing Dry and Intact Neurological: Yes: Oriented Psychiatric: Yes: Oriented Labs: CBC, BMP 12/11/16 10:25 12/11/16 10:25 INR, PTT INR 1.14 (0.82-1.09) 12/09/16 12:40 Problem List - Problems (1) PAD (peripheral artery disease) Code(s): I73.9 - PERIPHERAL VASCULAR DISEASE, UNSPECIFIED (2) Anemia Code(s): D64.9 - ANEMIA, UNSPECIFIED (3) Diabetes mellitus Code(s): E11.9 - TYPE 2 DIABETES MELLITUS WITHOUT COMPLICATIONS (4) ESRD (end stage renal disease) Code(s): N18.6 - END STAGE RENAL DISEASE (5) Hypertension Code(s): I10 - ESSENTIAL (PRIMARY) HYPERTENSION Assessment/Plan Current Medications Generic Name Dose Route Start Last Admin Trade Name Freq PRN Reason Stop Dose Admin Aspirin 81 mg 12/10/16 10:00 12/11/16 11:31 Asa - PO Not Given DAILY [facility] Atorvastatin Calcium 40 mg 12/11/16 22:00 Lipitor - PO HS [facility] Clopidogrel Bisulfate 75 mg 12/10/16 10:00 12/11/16 11:32 Plavix - PO Not Given DAILY [facility] Collagenase 1 applic 12/10/16 10:00 12/10/16 10:12 Santyl - TP 1 applic DAILY [facility] Administration Diphenhydramine HCl 25 mg 12/09/16 14:30 Benadryl - PO Q6H PRN Fentanyl 50 mcg 12/11/16 13:32 Sublimaze Injection - IVPUSH 12/14/16 13:33 [id number] PRN PAIN Glipizide 2.5 mg 12/10/16 07:00 12/11/16 06:14 Glucotrol - PO Not Given DAILY@0700 [facility] Hydromorphone HCl 0.5 mg 12/09/16 17:07 Dilaudid Injection - IVPB Q4H PRN PAIN Sodium Chloride 1,000 mls @ 42 mls/hr 12/11/16 13:45 Normal Saline - IV ASDIR [facility] Isosorbide Dinitrate 40 mg 12/10/16 10:00 12/11/16 09:31 Isordil - PO 40 mg DAILY [facility] Administration Lisinopril 40 mg 12/10/16 10:00 12/11/16 09:31 Prinivil PO 40 mg DAILY [facility] Administration Metoprolol Tartrate 50 mg 12/09/16 22:00 12/11/16 11:32 Lopressor - PO Not Given BID [facility] Non-Formulary Medication 0 gm 12/10/16 20:45 12/11/16 00:25 Becaplermin [Regranex] TP Not Given DAILY [facility] Ondansetron HCl 4 mg 12/11/16 13:32 Zofran Injection IVPUSH 12/11/16 19:33 Q6H PRN NAUSEA AND/OR VOMITING Pantoprazole Sodium 20 mg 12/10/16 10:00 12/11/16 11:32 Protonix - PO Not Given DAILY [facility] Promethazine HCl 12.5 mg 12/11/16 13:32 Phenergan Injection - IVPUSH 12/11/16 19:33 Q6H PRN NAUSEA Senna/Docusate Sodium 1 tablet 12/09/16 14:26 Pericolace - PO DAILY PRN [facility] Tamsulosin HCl 0.4 mg 12/09/16 14:45 12/11/16 11:31 Flomax - PO Not Given DAILY@0830 [facility] Impression 1. ESRD 2. HTN 3. DM 4. CAD 5. BPH 6. CHF 7. DFU 8. PVD Plan - OR today - will arrange for HD in am - cardio input appreciated - HD 3:30 heparin 1000, epogen 1600, venofer 50, hectorol 0.5 - vascular surgery eval - will follow Dr Humphries
[2016-12-11] MEDS ORDERED: PROTAMINE SULFATE 50 MG/5 ML VIAL ONE (15:31)
--- NOTE | 2016-12-11 15:44 | OP ---
Operative Note - Note: Operative Date: 12/11/16 Pre-Operative Diagnosis: Right third toe ischemia Operation: Aortogram, RLE angiogram, SFA atherectomy, DCB angioplasty , SFA stent, popliteal artery DCB angioplasty, tibial artery angioplasty Post-Operative Diagnosis: Same as Pre-op Surgeon: Kanu Hall Anesthesia: Fractional Estimated Blood Loss (mls): 75 Operative Report Dictated: Yes
[2016-12-11] MEDS ORDERED: HEPARIN NA (PORCINE) 5,000 UNITS/ML 1ML VIAL IVPUSH PRN ×5 (15:49→21:47)
--- NOTE | 2016-12-11 16:15 | PN ---
Physical Exam: SUBJECTIVE: Patient seen and examined Resting in bed NAD. no acute events. afebrile and hemodynamiclly stable ( hypertensive 156/78). Complains of stable pain in R 3rd toe and some tenderness in R 2nd and 4th toes. Some pain In left heel. Denies f/c, diaphoresis, chest pain, sob, palpitations, abd pain, n/v, diarrhea constipation or dysuria. TTE this morning and LE cath this afternoon. Cath records from [place] reviewed, last coronary angio in 2010 no main artery occlusion. diagonal one prox total occlusion OBJECTIVE: Vital Signs Period Temp Pulse Resp BP Sys/Kidd Pulse Ox Last 24 Hr 97.8 F-98.4 F 69-81 18-20 101-160/36-88 96-100 GENERAL: Awake, alert, and fully oriented, in no acute distress. HEAD: Normal with no signs of trauma. EYES: Pupils equal, round and reactive to light, extraocular movements intact, sclera anicteric, conjunctiva clear. No lid lag. EARS, NOSE, THROAT: Moist mucous membranes. NECK: supple without JVD LUNGS: Breath sounds equal, clear to auscultation bilaterally HEART: Regular rate and rhythm, normal S1 and S2 ABDOMEN: Soft, nontender, not distended, normoactive bowel sounds MUSCULOSKELETAL: No CVA tenderness. UPPER EXTREMITIES: 2+ pulses, warm, well-perfused. No peripheral edema. LOWER EXTREMITIES: LLE not palpable DP, RLE not palpable DP, 3rd toe cool, pale/ purple. no lesion. no edema. L calcaneal ulcer wrapped in clean curlex. NEUROLOGICAL: Cranial nerves II-XII grossly intact. Normal speech. PSYCHIATRIC: Cooperative. Good eye contact. Appropriate mood and affect. SKIN: Warm, dry Laboratory Results - last 24 hr 12/10/16 12/11/16 12/11/16 15:00 06:13 10:25 WBC 8.6 RBC 3.89 L Hgb 11.2 L Hct 34.2 L MCV 88.0 MCHC 32.8 RDW 14.6 Plt Count 202 MPV 10.0 Neutrophils % 61.0 Lymphocytes % 18.7 Monocytes % 9.3 Eosinophils % 10.5 H Basophils % 0.5 Sodium Potassium Chloride Carbon Dioxide Anion Gap BUN Creatinine POC Glucometer 122 Random Glucose Calcium Hepatitis C Antibody Cancelled 12/11/16 10:25 WBC RBC Hgb Hct MCV MCHC RDW Plt Count MPV Neutrophils % Lymphocytes % Monocytes % Eosinophils % Basophils % Sodium 141 Potassium 4.5 Chloride 98 Carbon Dioxide 32 D Anion Gap 11 BUN 57 H D Creatinine 4.7 H D POC Glucometer Random Glucose 121 H Calcium 7.4 L Hepatitis C Antibody Active Medications Generic Name Dose Route Start Last Admin Trade Name Freq PRN Reason Stop Dose Admin Aspirin 81 mg 12/10/16 10:00 12/11/16 11:31 Asa - PO Not Given DAILY [facility] Atorvastatin Calcium 40 mg 12/11/16 22:00 Lipitor - PO HS [facility] Clopidogrel Bisulfate 75 mg 12/10/16 10:00 12/11/16 11:32 Plavix - PO Not Given DAILY [facility] Collagenase 1 applic 12/10/16 10:00 12/10/16 10:12 Santyl - TP 1 applic DAILY [facility] Administration Diphenhydramine HCl 25 mg 12/09/16 14:30 Benadryl - PO Q6H PRN Epoetin [place] 2,000 units 12/12/16 15:17 Epogen - IVPUSH 12/12/16 15:18 ONCE ONE Fentanyl 50 mcg 12/11/16 13:32 Sublimaze Injection - IVPUSH 12/14/16 13:33 [id number] PRN PAIN Glipizide 2.5 mg 12/10/16 07:00 12/11/16 06:14 Glucotrol - PO Not Given DAILY@0700 [facility] Heparin Sodium (Porcine) 5,000 unit 12/11/16 21:00 Heparin - IVPUSH PRN PRN Heparin Heparin Sodium (Porcine) 1,000 unit 12/11/16 21:00 Heparin - IVPUSH PRN PRN Heparin Hydromorphone HCl 0.5 mg 12/09/16 17:07 Dilaudid Injection - IVPB Q4H PRN PAIN Sodium Chloride 1,000 mls @ 42 mls/hr 12/11/16 13:45 Normal Saline - IV ASDIR [facility] Heparin Sodium/Dextrose 500 mls @ 20 mls/hr 12/11/16 21:00 Heparin Infusion - IVPB TITR [facility] Protocol 1,000 UNITS/HR Isosorbide Dinitrate 40 mg 12/10/16 10:00 12/11/16 09:31 Isordil - PO 40 mg DAILY [facility] Administration Lisinopril 40 mg 12/10/16 10:00 12/11/16 09:31 Prinivil PO 40 mg DAILY [facility] Administration Metoprolol Tartrate 50 mg 12/09/16 22:00 12/11/16 11:32 Lopressor - PO Not Given BID [facility] Non-Formulary Medication 0 gm 12/10/16 20:45 12/11/16 00:25 Becaplermin [Regranex] TP Not Given DAILY [facility] Ondansetron HCl 4 mg 12/11/16 13:32 Zofran Injection IVPUSH 12/11/16 19:33 Q6H PRN NAUSEA AND/OR VOMITING Pantoprazole Sodium 20 mg 12/10/16 10:00 12/11/16 11:32 Protonix - PO Not Given DAILY [facility] Promethazine HCl 12.5 mg 12/11/16 13:32 Phenergan Injection - IVPUSH 12/11/16 19:33 Q6H PRN NAUSEA Senna/Docusate Sodium 1 tablet 12/09/16 14:26 Pericolace - PO DAILY [facility]N [facility] Tamsulosin HCl 0.4 mg 12/09/16 14:45 12/11/16 11:31 Flomax - PO Not Given DAILY@0830 [facility] ASSESSMENT/PLAN: This is a 71 yo m with PMH of severe PAD s/p LLE stent angioplasty, DM, HTN, CHF , ESRD on HD MWF (last one yesterday), CAD s/p 9 stents and BPH who present for cardiac and renal clearance prior to angiogram/angioplasty on RLE scheduled for this . PAD with early 3rd metatarsal dry gangrene -does not appear infected -no leukocytosis, patient afebrile, no skin break, no discarge, no odor, no cellulitis -Vascular on case, angiogram/plasty RLE today -Cardio clearance; recent TENA normal EF, mild MR. Todays tte mildly reduced EF -Cath records from [place] reviewed, last coronary angio in 2010 no main artery occlusion. diagonal one prox total occlusion -renal clearance; creat at baseline -dilaudid for pain -moderate risk for moderate risk surgery CAD -stable -EKG nonspecific inferolateral t changes -asymptomatic -continue asa, plavix DM -glipizide HTN -lisinopril -metoprolol -isosorbide HLD -lipitor ESRD -HD yesterday FEN no IVF lytes stable na controlled dm diet PPX: scd, ppi Dispo: med lulu Problem List - Problems (1) PAD (peripheral artery disease) Code(s): I73.9 - PERIPHERAL VASCULAR DISEASE, UNSPECIFIED (2) Acute on chronic combined systolic and diastolic CHF, NYHA class 4 Code(s): I50.43 - ACUTE ON CHRONIC COMBINED SYSTOLIC AND DIASTOLIC HRT FAIL (3) Arrhythmia Code(s): I49.9 - CARDIAC ARRHYTHMIA, UNSPECIFIED (4) BPH (benign prostatic hypertrophy) Code(s): N40.0 - BENIGN PROSTATIC HYPERPLASIA WITHOUT LOWER URINRY TRACT SYMP (5) Chronic kidney disease (CKD) Code(s): N18.9 - CHRONIC KIDNEY DISEASE, UNSPECIFIED Qualifiers: Chronic kidney disease stage: stage 3 (moderate) Qualified Code(s): N18.3 - Chronic kidney disease, stage 3 (moderate) (6) Coronary artery disease Code(s): I25.10 - ATHSCL HEART DISEASE OF [place] CORONARY ARTERY W/O ANG PCTRS (7) Diabetes mellitus Code(s): E11.9 - TYPE 2 DIABETES MELLITUS WITHOUT COMPLICATIONS (8) Diabetic foot ulcers Code(s): E11.621 - TYPE 2 DIABETES MELLITUS WITH FOOT ULCER L97.509 - NON-PRESSURE CHRONIC ULCER OTH PRT UNSP FOOT W UNSP SEVERITY Qualifiers: Diabetes mellitus type: type 2 Laterality: left (9) ESRD (end stage renal disease) Code(s): N18.6 - END STAGE RENAL DISEASE (10) Hyperlipidemia Code(s): E78.5 - HYPERLIPIDEMIA, UNSPECIFIED Qualifiers: Hyperlipidemia type: unspecified Qualified Code(s): E78.5 - Hyperlipidemia, unspecified (11) Hypertension Code(s): I10 - ESSENTIAL (PRIMARY) HYPERTENSION (12) Renal failure Code(s): N19 - UNSPECIFIED KIDNEY FAILURE Visit type - Emergency Visit Emergency Visit: Yes ED Registration Date: 12/09/16 Care time: The patient presented to the Emergency Department on the above date and was hospitalized for further evaluation of their emergent condition. - New Patient This patient is new to me today: No - Critical Care Critical Care patient: No - Discharge Referral Referred to [facility] No
[2016-12-11] MEDS ORDERED: HYDROmorphone HCL CARPU-JECT 1 MG/1 ML DISP.SYRIN IVPB PRN (16:19)
[2016-12-11] MEDS ORDERED: diphenhydrAMINE HCL 25 MG CAPSULE (FP) PO PRN (16:19)
[2016-12-11] MEDS ORDERED: SENNOSIDES/DOCUSATE COMBO (SENNA PLUS) TABLET (UD) PO PRN (16:19)
[2016-12-11] MEDS ORDERED: CLOPIDOGREL BISULFATE 75 MG TABLET (FP) ONE (17:04)
[2016-12-11] MEDS: COLLAGENASE CLOSTRIDIUM HIST. 30 GRAMS TUBE TP SCH ×2 (18:06→21:05)
[2016-12-11] MEDS ORDERED: HEPARIN INFUSION - 500 ML IVPB SCH (21:00)
[2016-12-11] MEDS ORDERED: ATORVASTATIN CA 40 MG TABLET (FP) PO SCH ×2 (22:00)
[2016-12-11] MEDS: SODIUM CHLORIDE 1,000 ML IV SCH (22:28)
[2016-12-12] MEDS ORDERED: glipiZIDE 5 MG TABLET (FP) PO SCH (07:00)
[2016-12-12] MEDS ORDERED: EPOETIN ALFA 2,000 UNITS/1 ML VIAL IVPUSH ONE ×2 (08:00→15:17)
[2016-12-12] MEDS ORDERED: TAMSULOSIN HCL 0.4 MG CAP.ER.24H (FP) PO SCH (08:30)
--- NOTE | 2016-12-12 09:33 | PN ---
Progress Note (short form) - Note Progress Note: POD #1 Sitting at bedside eating breakfast with present. Still c/o pain to his toe on his right foot (3rd digit). Pain managed via PRN meds. Ambulating with cane Afeb. AVSS. Gen:alert Left groin: stab incision intact. Small hematoma. RLE: 3rd toe with dry ulcer to distal aspect. Problem List - Problems (1) PAD (peripheral artery disease) Assessment/Plan: POD #1 s/p Aortogram, RLE angiogram, SFA atherectomy, DCB angioplasty , SFA stent, popliteal artery DCB angioplasty, tibial artery angioplasty for Right third toe ischemia Local wound care Cont medical management Pain management PRN No further vascular surgery intervention Reconsult PRN Code(s): I73.9 - PERIPHERAL VASCULAR DISEASE, UNSPECIFIED
[2016-12-12] MEDS ORDERED: ISOSORBIDE DINITRATE 40 MG PO SCH (10:00)
[2016-12-12] MEDS ORDERED: LISINOPRIL 20 MG TABLET (FP) PO SCH (10:00)
[2016-12-12] MEDS ORDERED: ASPIRIN 81 MG CHEWABLE TABLETS PO SCH (10:00)
[2016-12-12] MEDS ORDERED: CLOPIDOGREL BISULFATE 75 MG TABLET (FP) PO SCH (10:00)
[2016-12-12] MEDS ORDERED: BECAPLERMIN TP SCH (10:00)
[2016-12-12] MEDS ORDERED: PANTOPRAZOLE 20 MG TABLET (FP) PO SCH (10:00)
--- NOTE | 2016-12-12 11:58 | PN ---
Progress Note, Physician Chief Complaint: no c/o cp free History of Present Illness: Mr. Villa is a 71 year old male with a past medical history significant for PAD, diabetes, HTN, diastolic CHF, ESRD on dialysis -Thu-Thu, CAD with 9 stents , DM, BPH. The pt was scheduled for vascular surgery: angiogram/angioplasty on RLE today but was called yesterday that he needs to have cardiology clearance. The pt contacted his surgeon who referred him to the hospital. The pt is complaining of right foot pain in first, second and third finger and pain in his left heel. He is unable to walk. The pt denies chest pain, palpitations, SOB. He denies abdominal pain, N/V, diarrhea, constipation. He denies dysuria, fever, chills. 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 He is uncertain whether an angiogram or stress test was done recently, but will bring copies of pt's recent workups to the hospital in the morning (12/10/2016) . - Current Medication List Current Medications: Active Medications Aspirin (Asa -) 81 mg PO DAILY [facility] Atorvastatin Calcium (Lipitor -) 40 mg PO HS [facility] Last Admin: 12/11/16 22:26 Dose: 40 mg Clopidogrel Bisulfate (Plavix -) 75 mg PO DAILY [facility] Collagenase (Santyl -) 1 applic TP DAILY [facility] Last Admin: 12/11/16 18:06 Dose: Not Given Diphenhydramine HCl (Benadryl -) 25 mg PO Q6H PRN Fentanyl (Sublimaze Injection -) 50 mcg IVPUSH [id number] PRN PRN Reason: PAIN Stop: 12/14/16 13:33 Glipizide (Glucotrol -) 2.5 mg PO DAILY@0700 [facility] Last Admin: 12/12/16 07:00 Dose: 2.5 mg Hydromorphone HCl (Dilaudid Injection -) 0.5 mg IVPB Q4H PRN PRN Reason: PAIN Last Admin: 12/12/16 08:54 Dose: 0.5 mg Sodium Chloride (Normal Saline -) 1,000 mls @ 42 mls/hr IV ASDIR [facility] Last Admin: 12/11/16 22:28 Dose: Not Given Isosorbide Dinitrate (Isoditrate Er) 40 mg PO DAILY [facility] Lisinopril (Prinivil) 40 mg PO DAILY [facility] Metoprolol Tartrate (Lopressor -) 50 mg PO BID [facility] Last Admin: 12/11/16 22:26 Dose: 50 mg Pantoprazole Sodium (Protonix -) 20 mg PO DAILY [facility] Senna/Docusate Sodium (Pericolace -) 1 tablet PO DAILY PRN PRN Reason: CONSTIPATION Tamsulosin HCl (Flomax -) 0.4 mg PO DAILY@0830 [facility] - Objective Vital Signs: Vital Signs Temperature 98.1 F 12/11/16 22:00 Pulse Rate 86 12/11/16 22:00 Respiratory Rate 20 12/11/16 22:00 Blood Pressure 139/62 12/11/16 22:00 O2 Sat by Pulse Oximetry (%) 97 12/11/16 21:00 Eyes: Yes: WNL, Conjunctiva Clear, EOM Intact HENT: Yes: WNL, Atraumatic, Normocephalic Neck: Yes: WNL, Supple, Trachea Midline Cardiovascular: Yes: WNL, Regular Rate and Rhythm Respiratory: Yes: WNL, Regular, CTA Bilaterally Gastrointestinal: Yes: WNL, Normal Bowel Sounds Genitourinary: Yes: WNL Musculoskeletal: Yes: WNL Edema: No Integumentary: Yes: WNL Neurological: Yes: WNL, Alert, Oriented ...Motor Strength: WNL Psychiatric: Yes: WNL Labs: CBC, BMP 12/11/16 10:25 12/11/16 10:25 INR, PTT INR 1.14 (0.82-1.09) 12/09/16 12:40 Assessment/Plan POD #1 s/p Aortogram, RLE angiogram, SFA atherectomy, DCB angioplasty , SFA stent, popliteal artery DCB angioplasty, tibial artery angioplasty for Right third toe ischemia Pt denies having had chest pain since last coronary stent in 2010. Pt had been walking a few blocks and a flight of stairs daily until the past 6 weeks; no chest pain; occasional mild MURGUIA. EKG: no significant changes from 2016 (lateral wall T wave inversions). TENA 2016: normal LVEF. Code(s): I73.9 - PERIPHERAL VASCULAR DISEASE, UNSPECIFIED (2) BPH (benign prostatic hypertrophy) Code(s): N40.0 - BENIGN PROSTATIC HYPERPLASIA WITHOUT LOWER URINRY TRACT SYMP (3) Coronary artery disease Assessment/Plan: EKG: NSR; 1st degree AVB; T wave changes infero-laterally. TNI 0.02. TENA ECHO 01/2016 (done to r/o endocarditis): normal LVEF; non-mobile large atheromatous plaques in aortic arch and proximal descending aorta; no thrombi in LA or AUNG; mild MR and TR. Recommend: LDL cholesterol > 100 mg/dL; would use high-dose atorvastatin to aggressively lower LDL and triglycerides in light of pt's hx of CAD/PAD, and because of atheromatous plaques. Notes from prior angiograms studied multivessel disease, with PCI of LAD and RCA ; no further stents since 2010 (pt had reported stress MIBI since then, but did not find report); no chest pain since 2010, and pt has remained farily active physically since then until the past 6 weeks, when intense LE pain stopped him. Code(s): I25.10 - ATHSCL HEART DISEASE OF [place] CORONARY ARTERY W/O ANG PCTRS MIBI stress test when stable to further evaluate. (4) Diabetes mellitus Code(s): E11.9 - TYPE 2 DIABETES MELLITUS WITHOUT COMPLICATIONS (5) ESRD (end stage renal disease) Code(s): N18.6 - END STAGE RENAL DISEASE (6) Hyperlipidemia Code(s): E78.5 - HYPERLIPIDEMIA, UNSPECIFIED Qualifiers: Hyperlipidemia type: unspecified Qualified Code(s): E78.5 - Hyperlipidemia, unspecified (7) Hypertension Code(s): I10 - ESSENTIAL (PRIMARY) HYPERTENSION
[2016-12-12] MEDS ORDERED: OXYCODONE/APAP 5/325MG COMBO TABLET PO ONE (13:30)
--- NOTE | 2016-12-12 13:30 | PN ---
Progress Note (short form) - Note Progress Note: Vascular surgery Pt seen and examined. S/P atherectomy. Can DC home on plavix. Will see in office in 2 weeks. call for appt -- [phone] Kanu Hall DO
--- NOTE | 2016-12-12 13:34 | PN ---
Progress Note, Physician History of Present Illness: Pt seen and examined at bedside. He is awake and alert. He complains of pain in his toe. He denies shortness of breath. He is currently getting HD. - Current Medication List Current Medications: Active Medications Aspirin (Asa -) 81 mg PO DAILY [facility] Atorvastatin Calcium (Lipitor -) 40 mg PO HS [facility] Last Admin: 12/11/16 22:26 Dose: 40 mg Clopidogrel Bisulfate (Plavix -) 75 mg PO DAILY [facility] Collagenase (Santyl -) 1 applic TP DAILY [facility] Last Admin: 12/11/16 18:06 Dose: Not Given Diphenhydramine HCl (Benadryl -) 25 mg PO Q6H PRN Fentanyl (Sublimaze Injection -) 50 mcg IVPUSH [id number] PRN PRN Reason: PAIN Stop: 12/14/16 13:33 Glipizide (Glucotrol -) 2.5 mg PO DAILY@0700 [facility] Last Admin: 12/12/16 07:00 Dose: 2.5 mg Hydromorphone HCl (Dilaudid Injection -) 0.5 mg IVPB Q4H PRN PRN Reason: PAIN Last Admin: 12/12/16 08:54 Dose: 0.5 mg Sodium Chloride (Normal Saline -) 1,000 mls @ 42 mls/hr IV ASDIR [facility] Last Admin: 12/11/16 22:28 Dose: Not Given Isosorbide Dinitrate (Isoditrate Er) 40 mg PO DAILY [facility] Lisinopril (Prinivil) 40 mg PO DAILY [facility] Metoprolol Tartrate (Lopressor -) 50 mg PO BID [facility] Last Admin: 12/11/16 22:26 Dose: 50 mg Oxycodone/Acetaminophen (Percocet 5/325 -) 1 combo PO ONCE ONE Stop: 12/12/16 13:31 Pantoprazole Sodium (Protonix -) 20 mg PO DAILY [facility] Senna/Docusate Sodium (Pericolace -) 1 tablet PO DAILY PRN PRN Reason: CONSTIPATION Tamsulosin HCl (Flomax -) 0.4 mg PO DAILY@0830 [facility] - Objective Vital Signs: Vital Signs Temperature 98.1 F 12/11/16 22:00 Pulse Rate 86 12/11/16 22:00 Respiratory Rate 20 12/11/16 22:00 Blood Pressure 139/62 12/11/16 22:00 O2 Sat by Pulse Oximetry (%) 97 12/11/16 21:00 Constitutional: Yes: Calm Eyes: Yes: Conjunctiva Clear HENT: Yes: Atraumatic Neck: Yes: Supple Cardiovascular: Yes: S1, S2 Respiratory: Yes: CTA Bilaterally Gastrointestinal: Yes: Soft Genitourinary: Yes: WNL Musculoskeletal: Yes: Other (right third toe pain) Edema: Yes Edema: LLE: Trace, RLE: Trace Neurological: Yes: Oriented Psychiatric: Yes: Oriented Labs: CBC, BMP 12/11/16 10:25 12/11/16 10:25 INR, PTT INR 1.14 (0.82-1.09) 12/09/16 12:40 Problem List - Problems (1) PAD (peripheral artery disease) Code(s): I73.9 - PERIPHERAL VASCULAR DISEASE, UNSPECIFIED (2) Anemia Code(s): D64.9 - ANEMIA, UNSPECIFIED (3) Diabetes mellitus Code(s): E11.9 - TYPE 2 DIABETES MELLITUS WITHOUT COMPLICATIONS (4) ESRD (end stage renal disease) Code(s): N18.6 - END STAGE RENAL DISEASE (5) Hypertension Code(s): I10 - ESSENTIAL (PRIMARY) HYPERTENSION Assessment/Plan Current Medications Generic Name Dose Route Start Last Admin Trade Name Freq PRN Reason Stop Dose Admin Aspirin 81 mg 12/12/16 10:00 Asa - PO DAILY [facility] Atorvastatin Calcium 40 mg 12/11/16 22:00 12/11/16 22:26 Lipitor - PO 40 mg HS [facility] Administration Clopidogrel Bisulfate 75 mg 12/12/16 10:00 Plavix - PO DAILY [facility] Collagenase 1 applic 12/12/16 10:00 12/11/16 18:06 Santyl - TP Not Given DAILY [facility] Diphenhydramine HCl 25 mg 12/11/16 16:19 Benadryl - PO Q6H PRN Fentanyl 50 mcg 12/11/16 16:19 Sublimaze Injection - IVPUSH 12/14/16 13:33 [id number] PRN PAIN Glipizide 2.5 mg 12/12/16 07:00 12/12/16 07:00 Glucotrol - PO 2.5 mg DAILY@0700 [facility] Administration Hydromorphone HCl 0.5 mg 12/11/16 16:19 12/12/16 08:54 Dilaudid Injection - IVPB 0.5 mg Q4H PRN Administration PAIN Sodium Chloride 1,000 mls @ 42 mls/hr 12/11/16 16:19 12/11/16 22:28 Normal Saline - IV Not Given ASDIR [facility] Isosorbide Dinitrate 40 mg 12/12/16 10:00 Isoditrate Er PO DAILY [facility] Lisinopril 40 mg 12/12/16 10:00 Prinivil PO DAILY [facility] Metoprolol Tartrate 50 mg 12/11/16 22:00 12/11/16 22:26 Lopressor - PO 50 mg BID [facility] Administration Oxycodone/Acetaminophen 1 combo 12/12/16 13:30 Percocet 5/325 - PO 12/12/16 13:31 ONCE ONE Pantoprazole Sodium 20 mg 12/12/16 10:00 Protonix - PO DAILY [facility] Senna/Docusate Sodium 1 tablet 12/11/16 16:19 Pericolace - PO DAILY PRN CONSTIPATION Tamsulosin HCl 0.4 mg 12/12/16 08:30 Flomax - PO DAILY@0830 [facility] Impression 1. ESRD 2. HTN 3. DM 4. CAD 5. BPH 6. CHF 7. DFU 8. PVD Plan - pt is tolerating HD - vascular surgery follow up - will give a percocet for pain - cont HD - will follow - HD 3:30 heparin 1000, epogen 1600, venofer 50, hectorol 0.5 Dr Humphries
[2016-12-12] MEDS: COLLAGENASE CLOSTRIDIUM HIST. 30 GRAMS TUBE TP SCH (14:47)
[2016-12-12] MEDS: METOPROLOL TARTRATE 50 MG TABLET (FP) PO SCH (14:50)
--- NOTE | 2016-12-12 15:01 | DS ---
Physical Exam: SUBJECTIVE: Patient seen and examined Resting in bed NAD. no acute events. POD1 afebrile and hemodynamiclly stable. Complains of stable pain in R 3rd toe and some tenderness in R 2nd and 4th toes. Denies f/c, diaphoresis, chest pain, sob, palpitations, abd pain, n/v, diarrhea constipation or dysuria. OBJECTIVE: Vital Signs Period Temp Pulse Resp BP Sys/Kidd Pulse Ox Last 24 Hr 97.6 F-98.3 F 70-86 10-20 126-163/56-88 97-100 PHYSICAL EXAM GENERAL: Awake, alert, and fully oriented, in no acute distress. HEAD: Normal with no signs of trauma. EYES: Pupils equal, round and reactive to light, extraocular movements intact, sclera anicteric, conjunctiva clear. No lid lag. EARS, NOSE, THROAT: Moist mucous membranes. NECK: supple without JVD LUNGS: Breath sounds equal, clear to auscultation bilaterally HEART: Regular rate and rhythm, normal S1 and S2 ABDOMEN: Soft, nontender, not distended, normoactive bowel sounds MUSCULOSKELETAL: No CVA tenderness. UPPER EXTREMITIES: 2+ pulses, warm, well-perfused. No peripheral edema. LOWER EXTREMITIES: LLE not palpable DP, RLE not palpable DP, 3rd toe cool, pale/ purple. no lesion. no edema. L calcaneal ulcer wrapped in clean curlex. NEUROLOGICAL: Cranial nerves II-XII grossly intact. Normal speech. PSYCHIATRIC: Cooperative. Good eye contact. Appropriate mood and affect. 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 He was evaluated by cardiology and nephrology. He had a TTE done that showed mildly reduced EF. Coronar cath records from [place] were reviewed, last coronary angio in 2010 showed no main artery occlusion. diagonal one prox total occlusion. on 12/11/16 he underwent successful Aortogram , RLE angiogram, SFA atherectomy, DCB angioplasty , SFA stent, popliteal artery DCB angioplasty, tibial artery angioplasty. He was on hep drip overnight and we discharged home with VNS on plavix the next afternoon on POD1. Date of Discharge: 12/12/16 Minutes to complete discharge: 48 (na) Discharge Summary Reason For Visit: PERIPHERAL ARTERIAL DISEASE Current Active Problems PAD (peripheral artery disease) (Acute) Condition: Stable - Instructions Diet, Activity, Other Instructions: You were in the hospital for clearance prior to your R leg vascular surgery. You were cleared by nephrology and cardiology and had a successful revascularization procedure of right leg. It is normal for your toes to hurt for some time. Please continue taking plavix daily. Follow up with Dr Hall in wound care in 1 week Follow up with Dr Humphries in 1 week Continue your home medication Return to hospital if symptoms worsen Referrals: Kanu Hall MD [Staff Physician] - 1 Week Omari Humphries MD [Staff Physician] - 1 Week Disposition: VNS/HOME HEALTH CARE - Home Medications Comprehensive Discharge Medication List: Ambulatory Orders Clopidogrel Bisulfate [Plavix -] 75 mg PO DAILY 10/29/15 Aspirin [Indra Chewable Aspirin] 81 mg PO DAILY #30 tab.chew 11/08/15 Isosorbide Dinitrate [Isoditrate ER] 40 mg PO DAILY #30 tablet.er 11/08/15 Metoprolol Tartrate [Lopressor -] 50 mg PO BID #30 tablet 11/08/15 Tamsulosin HCl 0.4 mg PO DAILY #30 cap.er.24h 11/08/15 Glipizide 2.5 mg PO DAILY #30 tablet 11/23/15 Sennosides/Docusate Sodium [Senna S Tablet] 1 each PO DAILY PRN 11/28/15 Lisinopril [Prinivil] 40 mg PO DAILY #30 tablet 08/19/16 Simvastatin [Zocor -] 20 mg PO HS #30 tablet 08/21/16 Becaplermin [Regranex] 15 gm TP DAILY #1 gel..gram. 10/17/16 Collagenase Clostridium Hist. [Santyl -] 1 applic TP DAILY 12/08/16 Diphenhydramine HCl [Benadryl Capsule -] 25 mg PO Q6H 12/08/16 Famotidine [Pepcid] 20 mg PO PRN 12/08/16 Problem List - Problems (1) PAD (peripheral artery disease) Code(s): I73.9 - PERIPHERAL VASCULAR DISEASE, UNSPECIFIED (2) Acute on chronic combined systolic and diastolic CHF, NYHA class 4 Code(s): I50.43 - ACUTE ON CHRONIC COMBINED SYSTOLIC AND DIASTOLIC HRT FAIL (3) Arrhythmia Code(s): I49.9 - CARDIAC ARRHYTHMIA, UNSPECIFIED (4) BPH (benign prostatic hypertrophy) Code(s): N40.0 - BENIGN PROSTATIC HYPERPLASIA WITHOUT LOWER URINRY TRACT SYMP (5) Chronic kidney disease (CKD) Code(s): N18.9 - CHRONIC KIDNEY DISEASE, UNSPECIFIED Qualifiers: Chronic kidney disease stage: stage 3 (moderate) Qualified Code(s): N18.3 - Chronic kidney disease, stage 3 (moderate) (6) Coronary artery disease Code(s): I25.10 - ATHSCL HEART DISEASE OF [place] CORONARY ARTERY W/O ANG PCTRS (7) Diabetes mellitus Code(s): E11.9 - TYPE 2 DIABETES MELLITUS WITHOUT COMPLICATIONS (8) Diabetic foot ulcers Code(s): E11.621 - TYPE 2 DIABETES MELLITUS WITH FOOT ULCER L97.509 - NON-PRESSURE CHRONIC ULCER OTH PRT UNSP FOOT W UNSP SEVERITY Qualifiers: Diabetes mellitus type: type 2 Laterality: left (9) ESRD (end stage renal disease) Code(s): N18.6 - END STAGE RENAL DISEASE (10) Hyperlipidemia Code(s): E78.5 - HYPERLIPIDEMIA, UNSPECIFIED Qualifiers: Hyperlipidemia type: unspecified Qualified Code(s): E78.5 - Hyperlipidemia, unspecified (11) Hypertension Code(s): I10 - ESSENTIAL (PRIMARY) HYPERTENSION (12) Renal failure Code(s): N19 - UNSPECIFIED KIDNEY FAILURE This patient is new to me today: No Emergency Visit: Yes ED Registration Date: 12/09/16 Care time: The patient presented to the Emergency Department on the above date and was hospitalized for further evaluation of their emergent condition. Critical Care patient: No - Discharge Referral Referred to [facility] No
[2016-12-12] MEDS ORDERED: ACETAMINOPHEN 325 MG TABLET (FP) PO ONE ×2 (15:15→16:00)
[2016-12-12] MEDS ORDERED: oxyCODONE HCL 5 MG TABLET PO ONE ×2 (15:15→16:00)
[2016-12-12] MEDS: SODIUM CHLORIDE 1,000 ML IV SCH (17:43)
[2016-12-12 18:08] VITALS: BP 100/46; PULSE 93; TEMP 98.4
--- NOTE | 2016-12-12 19:26 | PN ---
Teaching Attending Note Name of Resident: Kori Patterson ATTENDING PHYSICIAN STATEMENT I saw and evaluated the patient. I reviewed the resident's note and discussed the case with the resident. I agree with the resident's findings and plan as documented. SUBJECTIVE: no fever or chills. seen around 12 pm . had pain in R third toe OBJECTIVE: NAD Cv : RRR Lungs: CTAB Ext : R 3rd toe with purpulish color . Has TTP of the 2nd, 3rd, and 4th toes , DP, and PT not felt on both sides . 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 pain is common after procedure f/u with Dr. Hall in 2 weeks 2- h/o CAD : cont cardiac meds , BB , Imdur , ASA and plavix cont statins and lisinopril 3- ESRD : HD MWF f/u with Dr. Humphries 4- h/o CHF : euvolemic DC home
--- NOTE | 2016-12-12 21:11 | PN ---
Progress Note (short form) - Note Progress Note: Anesthesia postop note 71 y/o M s/p MAC anesthesia for lower extremity angiogram angioplasty POD#1, vss, alert and awake, no complaints No anesthesia complications.
--- NOTE | 2016-12-13 17:27 | OP ---
DATE OF OPERATION: 12/13/2016 PROCEDURE: 1. Aortogram. 2. Left lower extremity angiogram. 3. SFA drug-coated balloon angioplasty with SFA stent placement. 4. Anterior tibial artery and posterior tibial artery angioplasty. PREOPERATIVE DIAGNOSIS: Left lower extremity ischemia. POSTOPERATIVE DIAGNOSIS: Left lower extremity ischemia. SURGEON: Kanu Hall DO ANESTHESIA: Fractional. BLOOD LOSS: 50 mL. INDICATION: The patient is a 71-year-old male who comes in with left lower extremity ischemia that started about 6 a.m. this morning. His family felt his leg. It was cool to the touch and he felt that there was numbness. The family then decided to bring him to the emergency room. The patient was examined and it was thought he would need an angiogram. The patient was consented for the procedure, understanding all risks, benefits and alternatives, and then taken to the operating room. PROCEDURE: Once in the operating room, he was placed on the operating room table in supine manner. The right and left groins were prepped and draped in a sterile surgical manner. We then injected 10 mL of 0.5% lidocaine over the right common femoral artery. Using ultrasound guidance, we were able to visualize the right common femoral artery and our micropuncture needle was placed there into the artery. A micropuncture wire was then placed. A micropuncture sheath was placed and a traditional 5-Lao sheath was placed. A 0.035 floppy guidewire was placed into the aorta followed by a Merit viewing catheter. We then shot an aortogram through the catheter, showing that the aorta and the iliac arteries were without any disease. We then placed a 0.035 floppy guidewire up and over to the left common femoral artery, and the Merit catheter followed. We then shot an angiogram of the left lower extremity showing that the profunda, the common femoral artery and the proximal SFA were patent. The [id number] SFA was occluded and reconstituted above the knee. Below the knee, the popliteal artery was patent. However, the posterior tibial artery and anterior tibial artery were stenotic and closed at their origin and down to the mid-calf, but reconstituted in the foot. At this point, we placed a 0.035 stiff guidewire into the SFA and removed our Merit catheter, placed a 6 x 45 crossover sheath up and over and administered to the patient. We then used a Quick-Cross catheter, and we were able to selectively cross the SFA occlusion. We placed the wire in the below-knee . Then, using a 5 x 8 drug-coated balloon, we performed angioplasty of the SFA. We then placed a 6 x 10 stent in the SFA, which was ballooned in place using a 5 x 10 balloon. Another angiogram was then shot, showing that the SFA was now patent. There was no recoil and the stent was in place. We then brought our Quick-Cross catheter below the knee and shot an angiogram, showing that the posterior tibial artery and the anterior tibial artery were occluded. We placed a 0.035 floppy guidewire, then a stiff guidewire into the posterior tibial artery and placed it in the foot and exchanged it for an 0.014 String Studies Director. We then used a 2 x 220 balloon and performed angioplasty of the posterior tibial artery. We then placed our 0.035 stiff guidewire into the anterior tibial artery and placed the wire into the foot and exchanged it for our String Studies Director wire, which is an 0.014 wire. We then used a 2 x 220 balloon and performed angioplasty to the anterior tibial artery. Completion angiogram now showed that the flow was brisk. The anterior and posterior tibial arteries were patent all the way down into the foot, and there was a good plantar arch. At this point, we brought our sheath up and over. A StarClose device was successfully deployed in the right common femoral artery. Pressure was held for 5 minutes. There was no bleeding. The areas were wet and dried, and Dermabond was placed. The patient tolerated the procedure with no complications. The patient was transferred to the PACU in stable condition. MEDIA COORDINATOR/[id number]
[2016-12-17 10:32] LABS: HEP B SURFACE AB REACTIVE
== END 2016-12-12 19:42 | disposition home health service (06) | DRG 173 ==
LOC: JER 10:59 → JERBED 13:16 → J7W 14:50
PROVIDERS: ADMIT Internal Medicine; ATTEND Internal Medicine
PROC: 5A1D60Z (ICD-10-PCS; 2016-12-10)
PROC: 04CL3ZZ Extirpation of Matter from Left Femoral Artery, Percutaneous Approach (ICD-10-PCS; 2016-12-11)
PROC: 047 Lower Arteries, Dilation (ICD-10-PCS; 2016-12-11)
PROC: 047S37Z Dilation of Left Posterior Tibial Artery with Four or More Drug-eluting Intraluminal Devices, Percutaneous Approach (ICD-10-PCS; 2016-12-11)
PROC: B40DYZZ Plain Radiography of Aorta and Bilateral Lower Extremity Arteries using Other Contrast (ICD-10-PCS; 2016-12-11)
PROC: 047 Lower Arteries, Dilation (ICD-10-PCS; principal; 2016-12-11 15:30)
DX: E11.52 Type 2 diabetes mellitus with diabetic peripheral angiopathy with gangrene (principal); I73.9 Peripheral vascular disease, unspecified; N18.6 End stage renal disease; Z99.2 Dependence on renal dialysis; N40.0 Benign prostatic hyperplasia without lower urinary tract symptoms; E11.621 Type 2 diabetes mellitus with foot ulcer; I13.0 Hypertensive heart and chronic kidney disease with heart failure and stage 1 through stage 4 chronic kidney disease, or unspecified chronic kidney disease; N18.3 Chronic kidney disease, stage 3 (moderate); I50.30 Unspecified diastolic (congestive) heart failure; I25.10 Atherosclerotic heart disease of native coronary artery without angina pectoris; Z98.61 Coronary angioplasty status; E78.5 Hyperlipidemia, unspecified; Z87.891 Personal history of nicotine dependence
CPT/HCPCS: 11042; 36415; 80048; 80053; 80061; 82550; 83605; 83721; 84443; 84484; 85025; 85027; 85610; 85730; 86704; 86706; 86707; 86708; 86850; 86900; 86901; 87340; 87350; 93005; 93010; 93306-TC; 94760; 99284-25; J0885; J1644

== ENCOUNTER 2016-12-13 10:14 | Inpatient (IN) | payer OTHER ==
[2016-12-13 10:22] VITALS: BMI 28.4
--- NOTE | 2016-12-13 10:29 | PDOC ---
History of Present Illness - General History Source: Patient, Old Records Exam Limitations: No Limitations <Leigha Arteaga - Last Filed: 12/13/16 11:21> - General History Source: Patient Exam Limitations: No Limitations - History of Present Illness Initial Comments: 12/13/16 11:15 The patient is a 71 year old male with a significant past medical history of 7 cardiac stents, diabetes, hypertension, hypercholesterolemia, and dialysis (M, W , F; last dialysis yesterday), who presents to the ER with left lower extremity numbness below the knee since this morning. As per patients son, patient had a bypass done through the right groin with Dr. Kanu Hall. Patient was discharged last night. Patient woke up this morning unable to bear weight on the left leg. He reports falling when he stood from his bed secondary to numbness in the left lower extremity. He denies head or neck trauma. Patient denies loss of consciousness. Patient reports he did not take any of his medications this morning. Denies pain in the left leg. Denies fever, chills, cough Denies paresthesia or swelling in the left leg Denies abdominal pain, nausea, vomiting Social Hx: 50 years of smoking Surgeon: Dr. Kanu Hall <Denise Crocker - Last Filed: 12/13/16 11:52> - General Chief Complaint: Weakness Stated Complaint: NUMBNESS TO LEGS Time Seen by Provider: 12/13/16 10:29 Past History - Past Medical History Anemia: No Asthma: No Cancer: No Cardiac Disorders: Yes (7 stents) CVA: No COPD: No CHF: No Dementia: No Diabetes: Yes Dialysis: Yes (RSC catheter M-W-F) GI Disorders: No Disorders: No HTN: Yes Hypercholesterolemia: Yes Liver Disease: No Seizures: No Thyroid Disease: No - Surgical History Abdominal Surgery: No Appendectomy: No Cardiac Surgery: Yes (card stent x 7) Cholecystectomy: No Lung Surgery: No Neurologic Surgery: No Orthopedic Surgery: No - Immunization History Immunization Up to Date: Yes - Psycho/Social/Smoking Cessation Hx Anxiety: No Suicidal Ideation: No Smoking History: Former smoker Have you smoked in the past 12 months: No Number of Cigarettes Smoked Daily: 6 If you are a former smoker, when did you quit?: 2 YRS Information on smoking cessation initiated: No 'Breaking Loose' booklet given: 11/28/15 Hx Alcohol Use: No Drug/Substance Use Hx: No Substance Use Type: None Hx Substance Use Treatment: No <Leigha Arteaga - Last Filed: 12/13/16 11:21> <Denise Crocker - Last Filed: 12/13/16 11:52> - Past Medical History Allergies/Adverse Reactions: Allergies Allergy/AdvReac Type Severity Reaction Status Date / Time No Known Allergies Allergy Verified 12/13/16 10:22 Home Medications: Ambulatory Orders Clopidogrel Bisulfate [Plavix -] 75 mg PO DAILY 10/29/15 Aspirin [Indra Chewable Aspirin] 81 mg PO DAILY #30 tab.chew 11/08/15 Isosorbide Dinitrate [Isoditrate ER] 40 mg PO DAILY #30 tablet.er 11/08/15 Metoprolol Tartrate [Lopressor -] 50 mg PO BID #30 tablet 11/08/15 Tamsulosin HCl 0.4 mg PO DAILY #30 cap.er.24h 11/08/15 Glipizide 2.5 mg PO DAILY #30 tablet 11/23/15 Sennosides/Docusate Sodium [Senna S Tablet] 1 each PO DAILY PRN 11/28/15 Lisinopril [Prinivil] 40 mg PO DAILY #30 tablet 08/19/16 Simvastatin [Zocor -] 20 mg PO HS #30 tablet 08/21/16 Becaplermin [Regranex] 15 gm TP DAILY #1 gel..gram. 10/17/16 Collagenase Clostridium Hist. [Santyl -] 1 applic TP DAILY 12/08/16 Diphenhydramine HCl [Benadryl Capsule -] 25 mg PO Q6H 12/08/16 Famotidine [Pepcid] 20 mg PO PRN 12/08/16 Review of Systems - Review of Systems Able to Perform ROS?: Yes Comments:: 12/13/16 11:17 GENERAL/CONSTITUTIONAL: No fever or chills. HEAD, EYES, EARS, NOSE AND THROAT: No change in vision. No ear pain or discharge. No sore throat. CARDIOVASCULAR: No chest pain or shortness of breath. RESPIRATORY: No cough, wheezing, or hemoptysis. GASTROINTESTINAL: No nausea, vomiting, diarrhea or constipation. GENITOURINARY: No dysuria, frequency, or change in urination. MUSCULOSKELETAL: Left leg numbness below the knee. No joint or muscle swelling or pain. No neck or back pain. SKIN: No rash NEUROLOGIC: No headache, vertigo, loss of consciousness, or change in strength/ sensation. ENDOCRINE: No increased thirst. No abnormal weight change. HEMATOLOGIC/LYMPHATIC: No anemia, easy bleeding, or history of blood clots. ALLERGIC/IMMUNOLOGIC: No hives or skin allergy. <Denise Crocker - Last Filed: 12/13/16 11:52> *Physical Exam - Vital Signs Last Vital Signs Temp Pulse Resp BP Pulse Ox 98.5 F 98 H 20 161/107 97 12/13/16 10:18 12/13/16 10:18 12/13/16 10:18 12/13/16 10:18 12/13/16 10:18 <Leigha Arteaga - Last Filed: 12/13/16 11:21> - Vital Signs Last Vital Signs Temp Pulse Resp BP Pulse Ox 98.5 F 98 H 20 161/107 97 12/13/16 10:18 12/13/16 10:18 12/13/16 10:18 12/13/16 10:18 12/13/16 10:18 - Physical Exam Comments: 12/13/16 11:18 GENERAL: Awake, alert, and fully oriented, in no acute distress HEAD: No signs of trauma EYES: PERRLA, EOMI, sclera anicteric, conjunctiva clear ENT: Auricles normal inspection, hearing grossly normal, nares patent, oropharynx clear without exudates. Moist mucosa NECK: Normal ROM, supple, no lymphadenopathy, JVD, or masses LUNGS: Breath sounds equal, clear to auscultation bilaterally. No wheezes, and no crackles HEART: Regular rate and rhythm, normal S1 and S2, no murmurs, rubs or gallops ABDOMEN: Soft, nontender, normoactive bowel sounds. No guarding, no rebound. No masses EXTREMITIES: Able to wiggle his left toes. Left foot is cold. Not able to tack picker doppler signals for arteries in left foot. Signals presents in the RLE doppler. 4+ strength in all extremities. Normal range of motion, no edema. No clubbing or cyanosis. No cords, erythema, tenderness, or changes in sensation. NEUROLOGICAL: Cranial nerves II through XII grossly intact. Normal speech, normal gait SKIN: 1x2.5 cm ulcerative lesion on left foot. Warm, Dry, normal turgor, no rashes or lesions noted. <Denise Crocker - Last Filed: 12/13/16 11:52> ED Treatment Course - LABORATORY CBC & Chemistry Diagram: 12/13/16 11:30 12/13/16 11:30 <Denise Crocker - Last Filed: 12/13/16 11:52> Medical Decision Making - Medical Decision Making 12/13/16 11:21 71-year-old male with history of hypertension, diabetes, end-stage renal disease on hemodialysis Thursday and Thursday also peripheral vascular disease status post stenting of the right SFA discharge from the hospital yesterday presents the emergency department with numbness from the left knee down to the foot with a cold that has no dopplerable signals. Differential diagnosis includes but is not limited to: Arterial occlusion in the left lower extremity, atherosclerotic occlusive disease thank you. Plan: 1. Emergent vascular surgery consult 2. Pepcid for operating room 3. Labs 4. Observe and reevaluate <Leigha Arteaga - Last Filed: 12/13/16 11:21> - Medical Decision Making 12/13/16 11:[address] Kanu Hall <Denise Crocker - Last Filed: 12/13/16 11:52> *DC/Admit/Observation/Transfer - Discharge Dispostion Admit: Yes - Attestations Physician Attestion: 12/13/16 11:24 I, Dr. Leigha Arteaga, attest that the scribes documentation that appears above has been prepared under my direction and personally reviewed by me in its entirety. I confirmed that the note above accurately reflects all work, treatment, procedures, and medical decision-making performed by me. <Leigha Arteaga - Last Filed: 12/13/16 11:21> <Denise Crocker - Last Filed: 12/13/16 11:52> Diagnosis at time of Disposition: PAD (peripheral artery disease), Arterial occlusion due to stenosis, Diabetes mellitus, ESRD (end stage renal disease) - Discharge Dispostion Condition at time of disposition: Stable
[2016-12-13 11:46] LABS: BASOPHIL 0.6 % (0-2.0); EOSINOPHIL 3.1 % (0-4.5); MCH 28.8 pg (25.7-33.7); MCHC 32.1 g/dl (32.0-35.9); MEAN CELL VOLUME 89.8 fl (80-96); MEAN PLT VOLUME 10.2 fl (7.5-11.1); NEUTROPHILS 75.3 % (42.8-82.8); PLATELET COUNT 201 K/MM3 (134-434); RDW 14.6 % (11.9-15.9); WHITE BLOOD COUNT 12.3 K/mm3 (4.0-10.0)
[2016-12-13] MEDS ORDERED: ceFAZolin SODIUM 1 GM VIAL IVPB ONE (12:06)
[2016-12-13] MEDS ORDERED: LIDOCAINE HCL 1%, 10 MG/ML (20ML VIAL) IJ ONE ×2 (12:07)
[2016-12-13 12:10] LABS: INR 1.24 (0.82-1.09); PROTHROMBIN TIME (PATIENT) 13.7 SEC (9.98-11.88)
--- NOTE | 2016-12-13 12:21 | HP ---
CHIEF COMPLAINT: Left lower extremity numbness and temperature change PCP: Dr. Humphries HISTORY OF PRESENT ILLNESS: The patient is a 71 year old male with a significant past medical history significant of hypertension, hyperlipidemia, coronary artery disease, congestive heart failure, type two diabetes, ESRD (dialysis MWF), previous revascularization of LLE (Dr. Hall), discharged from an inpatient admission yesterday after RLE revascularization, who presented to the ED after he noted left lower extremity numbness and decreased skin temperature below the left knee this morning. He denies pain. He denies palpitations. He was dialyzed yesterday. ER course was notable for: (1) Bedside LLE US by ED unable to detect flow in left PT or DP (2) Call placed to vascular surgery, Dr. Hall, who will see the patient Recent Travel: None PAST MEDICAL HISTORY: See above PAST SURGICAL HISTORY: Social History: Smoking: None Alcohol: None Drugs: None Family History: Allergies No Known Allergies Allergy (Verified 12/13/16 10:22) HOME MEDICATIONS: Home Medications Medication Instructions Recorded Clopidogrel Bisulfate [Plavix -] 75 mg PO DAILY 10/29/15 Aspirin [Indra Chewable Aspirin] 81 mg PO DAILY #30 tab.chew 11/08/15 Isosorbide Dinitrate [Isoditrate 40 mg PO DAILY #30 tablet.er 11/08/15 ER] Metoprolol Tartrate [Lopressor -] 50 mg PO BID #30 tablet 11/08/15 Tamsulosin HCl 0.4 mg PO DAILY #30 cap.er.24h 11/08/15 Glipizide 2.5 mg PO DAILY #30 tablet 11/23/15 Sennosides/Docusate Sodium [Senna 1 each PO DAILY PRN 11/28/15 S Tablet] Lisinopril [Prinivil] 40 mg PO DAILY #30 tablet 08/19/16 Simvastatin [Zocor -] 20 mg PO HS #30 tablet 08/21/16 Becaplermin [Regranex] 15 gm TP DAILY #1 gel..gram. 10/17/16 Collagenase Clostridium Hist. 1 applic TP DAILY 12/08/16 [Santyl -] Diphenhydramine HCl [Benadryl 25 mg PO Q6H 12/08/16 Capsule -] Famotidine [Pepcid] 20 mg PO PRN 12/08/16 REVIEW OF SYSTEMS CONSTITUTIONAL: Absent: fever, chills, diaphoresis, generalized weakness, malaise, loss of appetite, weight change HEENT: Absent: rhinorrhea, nasal congestion, throat pain, throat swelling, difficulty swallowing, mouth swelling, ear pain, eye pain, visual changes CARDIOVASCULAR: Absent: chest pain, syncope, palpitations, irregular heart rate, lightheadedness , peripheral edema RESPIRATORY: Absent: cough, shortness of breath, dyspnea with exertion, orthopnea, wheezing, stridor, hemoptysis GASTROINTESTINAL: Absent: abdominal pain, abdominal distension, nausea, vomiting, diarrhea, constipation, melena, hematochezia GENITOURINARY: Absent: dysuria, frequency, urgency, hesitancy, hematuria, flank pain, genital pain MUSCULOSKELETAL: Absent: myalgia, arthralgia, joint swelling, back pain, neck pain SKIN: Present: cool left lower extremity Absent: rash, itching, pallor HEMATOLOGIC/IMMUNOLOGIC: Absent: easy bleeding, easy bruising, lymphadenopathy, frequent infections ENDOCRINE: Absent: unexplained weight gain, unexplained weight loss, heat intolerance, cold intolerance NEUROLOGIC: Present: left lower extremity paresthesias Absent: headache, focal weakness, dizziness, unsteady gait, seizure, mental status changes, bladder or bowel incontinence PSYCHIATRIC: Absent: anxiety, depression, suicidal or homicidal ideation, hallucinations. PHYSICAL EXAMINATION Vital Signs - 24 hr 12/13/16 11:47 Pulse Rate [ 87 Apical] Respiratory 18 Rate Blood Pressure 148/59 [Right Arm] O2 Sat by Pulse 99 Oximetry (%) GENERAL: Awake, alert, and fully oriented, in no acute distress. HEAD: Normal with no signs of trauma. EYES: Pupils equal, round and reactive to light, extraocular movements intact, sclera anicteric, conjunctiva clear. No lid lag. EARS, NOSE, THROAT: Ears normal, nares patent, oropharynx clear without exudates. Moist mucous membranes. NECK: Normal range of motion, supple without lymphadenopathy, JVD, or masses. LUNGS: Breath sounds equal, clear to auscultation bilaterally. No wheezes, and no crackles. No accessory muscle use. HEART: Regular rate and rhythm, normal S1 and S2 without murmur, rub or gallop. ABDOMEN: Soft, nontender, not distended, normoactive bowel sounds, no guarding, no rebound, no masses. No hepatomegaly or splenomegaly. MUSCULOSKELETAL: Normal range of motion at all joints. No bony deformities or tenderness. No CVA tenderness. UPPER EXTREMITIES: 2+ pulses, warm, well-perfused. No cyanosis. No clubbing. No peripheral edema. LOWER EXTREMITIES: No palpable pulses in LLE DP and PT (no flow in either by ED bedisde US) Decreased skin temperature of LLE below the knee No palpable DP or PT pulses on the right (same as when he left yesterday) Right lower extremity warm, well-perfused. No calf tenderness. No peripheral edema. NEUROLOGICAL: Cranial nerves II-XII intact. Normal speech. Normal gait. PSYCHIATRIC: Cooperative. Good eye contact. Appropriate mood and affect. SKIN: Warm, dry, normal turgor, no rashes or lesions noted, normal capillary refill. Laboratory Results - last 24 hr 12/13/16 11:30 WBC 12.3 H D RBC 3.87 L Hgb 11.2 L Hct 34.8 L MCV 89.8 MCHC 32.1 RDW 14.6 Plt Count 201 MPV 10.2 Neutrophils % 75.3 D Lymphocytes % 10.2 D Monocytes % 10.8 H Eosinophils % 3.1 Basophils % 0.6 ASSESSMENT/PLAN: The patient is a 71 year old male with a significant past medical history and ED course as above who is being admitted to inpatient services with acute onset LLE limb ischemia and is pending stat evaluation by vascular surgeon, Dr. Hall , who was made aware by the ED. -VASCULAR Acute left lower extremity limb ischemia Vascular to see stat I anticipate angiogram today followed by revasularization Will hold ASA / Plavix for now, pending the procedure No heparin for now as we anticipate OR intervention very soon Of note, lactic acid not elevated -RENAL No need for dialysis now Will watch for overload after angiogram Will consult renal and continue HD MWF -CARDIOVASCULAR CAD, HTN, HLD, all stable Hold asa and plavix for now Continue Lisonopril, Metoprolol, Isordil, Lipitor -ENDOCRINE Will hold Glipizide for now Restart after procedure -FEN No evidence of volume overload NPO for now Will continue Na controlled diet after procedure -PROPHYLAXIS Anticipate he will be eating Heparin TID Visit type - Emergency Visit Emergency Visit: Yes ED Registration Date: 12/13/16 Care time: The patient presented to the Emergency Department on the above date and was hospitalized for further evaluation of their emergent condition. - New Patient This patient is new to me today: No - Critical Care Critical Care patient: No
[2016-12-13 12:27] LABS: ALBUMIN 3.6 g/dl (3.4-5.0); BILIRUBIN,TOTAL 0.6 mg/dL (0.2-1.0); CALCIUM 7.5 mg/dL (8.5-10.1); CREATININE 4.9 mg/dL (0.7-1.3); TOT PROT 6.8 g/dl (6.4-8.2)
[2016-12-13] MEDS ORDERED: SENNOSIDES/DOCUSATE COMBO (SENNA PLUS) TABLET (UD) PO PRN ×2 (12:39→15:38)
[2016-12-13] MEDS ORDERED: LIDOCAINE HCL 1%, 10 MG/ML (20ML VIAL) ONE (13:29)
[2016-12-13] MEDS ORDERED: HEPARIN NA (PORCINE) 5,000 UNITS/ML 1ML VIAL ONE ×2 (13:29→14:17)
[2016-12-13] MEDS ORDERED: MIDAZOLAM HCL 2 MG/2 ML SINGLE DOSE VIAL ONE ×2 (13:58)
[2016-12-13] MEDS ORDERED: ceFAZolin SODIUM 1 GM VIAL ONE (14:06)
--- NOTE | 2016-12-13 15:21 | OP ---
Operative Note - Note: Operative Date: 12/13/16 Pre-Operative Diagnosis: Left lower ext ischemia Operation: Aortogram, Left lower ext angiogram, SFA DCB angioplasty with stent, anterior and posterior artery angioplasty Post-Operative Diagnosis: Same as Pre-op Surgeon: Kanu Hall Anesthesia: Fractional Estimated Blood Loss (mls): 50 Operative Report Dictated: Yes
[2016-12-13] MEDS ORDERED: ONDANSETRON 4 MG/2 ML VIAL IVPUSH PRN (15:27)
[2016-12-13] MEDS: CLOPIDOGREL BISULFATE 75 MG TABLET (FP) PO SCH (15:30)
[2016-12-13] MEDS ORDERED: HEPARIN NA (PORCINE) 5,000 UNITS/ML 1ML VIAL SQ SCH (18:00)
[2016-12-13] MEDS ORDERED: ACETAMINOPHEN 325 MG TABLET (FP) PO ONE (20:36)
[2016-12-13] MEDS: INSULIN SLIDING SCALE (NOVOLOG) 1 VIAL SQ SCH (21:30)
[2016-12-13] MEDS: METOPROLOL TARTRATE 50 MG TABLET (FP) PO SCH (21:30)
[2016-12-13] MEDS: HEPARIN NA (PORCINE) 5,000 UNITS/ML 1ML VIAL SQ SCH (21:30)
[2016-12-13] MEDS ORDERED: INSULIN SLIDING SCALE (NOVOLOG) 1 VIAL SQ SCH (22:00)
[2016-12-13] MEDS ORDERED: ATORVASTATIN CA 10 MG TABLET (FP) PO SCH ×2 (22:00)
[2016-12-13] MEDS ORDERED: PATIENT'S OWN MEDICATION (NON-FORMULARY) (Simvastatin 20 MG) PO SCH (22:00)
[2016-12-13] MEDS ORDERED: METOPROLOL TARTRATE 50 MG TABLET (FP) PO SCH (22:00)
[2016-12-14] MEDS: INSULIN SLIDING SCALE (NOVOLOG) 1 VIAL SQ SCH ×4 (05:59→21:16)
[2016-12-14] MEDS: HEPARIN NA (PORCINE) 5,000 UNITS/ML 1ML VIAL SQ SCH ×3 (06:01→21:15)
[2016-12-14] MEDS ORDERED: TAMSULOSIN HCL 0.4 MG CAP.ER.24H (FP) PO SCH (08:30)
[2016-12-14] MEDS ORDERED: PT OWN MED DRAWER 7, Y5N ONE (09:02)
[2016-12-14 09:04] LABS: BASOPHIL 0.4 % (0-2.0); EOSINOPHIL 2.7 % (0-4.5); MCHC 32.6 g/dl (32.0-35.9); MEAN CELL VOLUME 88.9 fl (80-96); MEAN PLT VOLUME 10.3 fl (7.5-11.1); NEUTROPHILS 78.8 % (42.8-82.8); PLATELET COUNT 190 K/MM3 (134-434); RDW 14.1 % (11.9-15.9); WHITE BLOOD COUNT 11.9 K/mm3 (4.0-10.0)
[2016-12-14 09:51] LABS: CREATININE 6.3 mg/dL (0.7-1.3)
[2016-12-14] MEDS ORDERED: PATIENT'S OWN MEDICATION (NON-FORMULARY) (Becaplermin [Regranex] 15 GM) TP SCH ×2 (10:00)
[2016-12-14] MEDS ORDERED: LISINOPRIL 20 MG TABLET (FP) PO SCH (10:00)
[2016-12-14] MEDS ORDERED: COLLAGENASE CLOSTRIDIUM HIST. 30 GRAMS TUBE TP SCH (10:00)
[2016-12-14] MEDS ORDERED: ISOSORBIDE DINITRATE 40 MG PO SCH (10:00)
[2016-12-14] MEDS: TAMSULOSIN HCL 0.4 MG CAP.ER.24H (FP) PO SCH (10:10)
[2016-12-14] MEDS: CLOPIDOGREL BISULFATE 75 MG TABLET (FP) PO SCH (10:10)
[2016-12-14] MEDS: METOPROLOL TARTRATE 50 MG TABLET (FP) PO SCH ×2 (10:10→21:15)
[2016-12-14] MEDS: LISINOPRIL 20 MG TABLET (FP) PO SCH (10:10)
[2016-12-14] MEDS: ISOSORBIDE DINITRATE 40 MG PO SCH (10:11)
[2016-12-14] MEDS: COLLAGENASE CLOSTRIDIUM HIST. 30 GRAMS TUBE TP SCH (10:11)
[2016-12-14] MEDS ORDERED: ATORVASTATIN CA 40 MG TABLET (FP) PO SCH (10:57)
--- NOTE | 2016-12-14 11:10 | PN ---
Progress Note (short form) - Note Progress Note: Subjective: pain is much better in L foot . has sensation there . minimal pain In R middle toe . no SOB or CP . Objective: Vital Signs: Last Vital Signs Temp Pulse Resp BP Pulse Ox 99.3 F 89 20 147/65 96 12/14/16 06:00 12/14/16 06:00 12/14/16 06:00 12/14/16 06:00 12/13/16 21:00 Physical Exam: NAD CV : RRR Lungs : CTAB ext : LLE edema ( 1+ ) , L footis warm, with nl sensation to light touch . DP and PT pulses are not felt on both sides . R foot with purpulish/black middle toe , with TTP . nl sensation over foot. no edema over R foot . minimal purpulish color change on sole ( around 2nd, 3rd, 4th MTP joints ) Laboratory Results - last 24 hr 12/13/16 12/13/16 12/13/16 11:01 11:03 11:30 WBC 12.3 H D RBC 3.87 L Hgb 11.2 L Hct 34.8 L MCV 89.8 MCHC 32.1 RDW 14.6 Plt Count 201 MPV 10.2 Neutrophils % 75.3 D Lymphocytes % 10.2 D Monocytes % 10.8 H Eosinophils % 3.1 Basophils % 0.6 INR PTT (Actin FS) Sodium Potassium Chloride Carbon Dioxide Anion Gap BUN Creatinine Creat Clearance w eGFR POC Glucometer Random Glucose Lactic Acid 1.286 Calcium Total Bilirubin AST ALT Alkaline Phosphatase Total Protein Albumin Blood Type A POSITIVE Antibody Screen Negative 12/13/16 12/13/16 12/13/16 11:30 11:30 11:30 WBC RBC Hgb Hct MCV MCHC RDW Plt Count MPV Neutrophils % Lymphocytes % Monocytes % Eosinophils % Basophils % INR 1.24 H PTT (Actin FS) 27.0 Sodium 139 Potassium 4.2 Chloride 96 L Carbon Dioxide 29 Anion Gap 14 BUN 43 H D Creatinine 4.9 H Creat Clearance w eGFR 11.70 POC Glucometer Random Glucose 140 H Lactic Acid Calcium 7.5 L Total Bilirubin 0.6 AST 9 L D ALT 10 L D Alkaline Phosphatase 44 L Total Protein 6.8 Albumin 3.6 Blood Type Antibody Screen 12/13/16 12/13/16 12/14/16 15:57 20:41 05:48 WBC RBC Hgb Hct MCV MCHC RDW Plt Count MPV Neutrophils % Lymphocytes % Monocytes % Eosinophils % Basophils % INR PTT (Actin FS) Sodium Potassium Chloride Carbon Dioxide Anion Gap BUN Creatinine Creat Clearance w eGFR POC Glucometer 111 251 107 Random Glucose Lactic Acid Calcium Total Bilirubin AST ALT Alkaline Phosphatase Total Protein Albumin Blood Type Antibody Screen 12/14/16 12/14/16 08:15 08:15 WBC 11.9 H RBC 3.20 L Hgb 9.3 L D Hct 28.4 L D MCV 88.9 MCHC 32.6 RDW 14.1 Plt Count 190 MPV 10.3 Neutrophils % 78.8 Lymphocytes % 8.3 Monocytes % 9.8 Eosinophils % 2.7 Basophils % 0.4 INR PTT (Actin FS) Sodium 140 Potassium 4.1 Chloride 98 Carbon Dioxide 28 Anion Gap 14 BUN 57 H D Creatinine 6.3 H D Creat Clearance w eGFR POC Glucometer Random Glucose 100 D Lactic Acid Calcium 7.0 L Total Bilirubin AST ALT Alkaline Phosphatase Total Protein Albumin Blood Type Antibody Screen Current Medications Generic Name Dose Route Start Last Admin Trade Name Freq PRN Reason Stop Dose Admin Atorvastatin Calcium 40 mg 12/14/16 10:57 Lipitor - PO HS JAZ Clopidogrel Bisulfate 75 mg 12/13/16 15:30 12/14/16 10:10 Plavix - PO 75 mg DAILY [facility] Administration Collagenase 1 applic 12/14/16 10:00 12/14/16 10:11 Santyl - TP 1 applic DAILY [facility] Administration Heparin Sodium (Porcine) 5,000 unit 12/13/16 22:00 12/14/16 06:01 Heparin - SQ 5,000 unit TID JAZ Administration Insulin Aspart 1 vial 12/13/16 22:00 12/14/16 05:59 Novolog Vial Sliding Scale - SQ Not Given ACHS [facility] Protocol Isosorbide Dinitrate 40 mg 12/14/16 10:00 12/14/16 10:11 Isoditrate Er PO 40 mg DAILY JAZ Administration Lisinopril 40 mg 12/14/16 10:00 12/14/16 10:10 Prinivil PO 40 mg DAILY JAZ Administration Metoprolol Tartrate 50 mg 12/13/16 22:00 12/14/16 10:10 Lopressor - PO 50 mg BID JAZ Administration Non-Formulary Medication 15 gm 12/14/16 10:00 Becaplermin [Regranex] TP DAILY [facility] Senna/Docusate Sodium 1 tablet 12/13/16 15:38 Pericolace - PO DAILY PRN CONSTIPATION Tamsulosin HCl 0.4 mg 12/14/16 08:30 12/14/16 10:10 Flomax - PO 0.4 mg DAILY@0830 JAZ Administration 71 y/o man from [place] with PMH significant for HTN , hyperlipidemia, CAD , CHF , type two diabetes, ESRD ( MWF), previous revascularization of LLE , and recent admission for R third toe dry gangrene , who presented with pain in L foot . 1- L foot acute ischemia: s/p angioplasty and stent placement 12/13 . Now with detectable pulses only with doppler foot is warm and has nl sensation . 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 -D/W Dr. Hall, cont medical mgt and monitor color change of toe and foot . 3- h/o CAD : cont cardiac meds , BB , Imdur ,lisinopril , ASA and plavix increase statin to 40 . LDL 100 3- ESRD : HD [facility] Dr. Humphries consult for HD tomorrow 4- h/o CHF : euvolemic. volume is managed with HD possible dc tomorrow if afebrile x 24 hr Visit type - Emergency Visit Emergency Visit: Yes ED Registration Date: 12/13/16 Care time: The patient presented to the Emergency Department on the above date and was hospitalized for further evaluation of their emergent condition. - New Patient This patient is new to me today: Yes Date on this admission: 12/14/16 - Critical Care Critical Care patient: No
--- NOTE | 2016-12-14 14:19 | CON.NEP ---
Consult Consult Specialty:: nephrology Reason for Consultation:: esrd - History of Present Illness Chief Complaint: left leg numbness History of Present Illness: The patient is a 71 year old male with a significant past medical history of 7 cardiac stents, diabetes, hypertension, hypercholesterolemia, and dialysis (M, W , F), who presented to the ER with left lower extremity numbness below the knee since this morning. As per patients son, patient had a bypass done through the right groin with Dr. Kanu Hall. Patient was discharged 2 nights ago. Patient woke up unable to bear weight on the left leg. He reports falling when he stood from his bed secondary to numbness in the left lower extremity. He denies head or neck trauma. Patient denies loss of consciousness. Patient reports he did not take any of his medications before the event. He had an angioplasty yesterday and today feels better - History Source History Provided By: Medical Record - Past Medical History Cardio/Vascular: Yes: CAD, CHF, HTN, Hyperlipdemia, Other (ESRD-->HD; PAD) Renal/: Yes: Renal Inusuff, BPH - Past Surgical History Past Surgical History: Yes: AV Fistula/Graft - Alcohol/Substance Use Hx Alcohol Use: No History of Substance Use: reports: None - Smoking History Smoking history: Former smoker Have you smoked in the past 12 months: No Aproximately how many cigarettes per day: 6 If you are a former smoker, when did you quit?: 2 YRS - Social History Usual Living Arrangement: With Spouse ADL: Family Assistance History of Recent Travel: No Home Medications - Allergies Allergies/Adverse Reactions: Allergies Allergy/AdvReac Type Severity Reaction Status Date / Time No Known Allergies Allergy Verified 12/13/16 10:22 - Home Medications Home Medications: Ambulatory Orders Clopidogrel Bisulfate [Plavix -] 75 mg PO DAILY 10/29/15 Aspirin [Indra Chewable Aspirin] 81 mg PO DAILY #30 tab.chew 11/08/15 Isosorbide Dinitrate [Isoditrate ER] 40 mg PO DAILY #30 tablet.er 11/08/15 Metoprolol Tartrate [Lopressor -] 50 mg PO BID #30 tablet 11/08/15 Tamsulosin HCl 0.4 mg PO DAILY #30 cap.er.24h 11/08/15 Glipizide 2.5 mg PO DAILY #30 tablet 11/23/15 Sennosides/Docusate Sodium [Senna S Tablet] 1 each PO DAILY PRN 11/28/15 Lisinopril [Prinivil] 40 mg PO DAILY #30 tablet 08/19/16 Simvastatin [Zocor -] 20 mg PO HS #30 tablet 08/21/16 Becaplermin [Regranex] 15 gm TP DAILY #1 gel..gram. 10/17/16 Collagenase Clostridium Hist. [Santyl -] 1 applic TP DAILY 12/08/16 Diphenhydramine HCl [Benadryl Capsule -] 25 mg PO Q6H 12/08/16 Famotidine [Pepcid] 20 mg PO PRN 12/08/16 Review of Systems - Review of Systems Constitutional: reports: Weakness Eyes: reports: No Symptoms HENT: reports: No Symptoms Neck: reports: No Symptoms Cardiovascular: reports: No Symptoms Respiratory: reports: No Symptoms Gastrointestinal: reports: No Symptoms Genitourinary: reports: No Symptoms Breasts: reports: No Symptoms Reported Musculoskeletal: reports: Muscle Weakness Integumentary: reports: No Symptoms Neurological: reports: Parasthesia Endocrine: reports: No Symptoms Hematology/Lymphatic: reports: No Symptoms Psychiatric: reports: No Symptoms Nephrology Consult - Height Height: 5 ft 6 in - Weight Weight: 176 lb 5.917 oz - BMI Body Mass Index (BMI): 28.4 - Lab Results CBC,BMP: CBC, BMP 12/14/16 08:15 12/14/16 08:15 Anion Gap: Anion Gap Anion Gap 14 (8-16) 12/14/16 08:15 - Physical Examination Vital Signs: Vital Signs Temperature 98.6 F 12/14/16 13:53 Pulse Rate 76 12/14/16 13:53 Respiratory Rate 20 12/14/16 13:53 Blood Pressure 103/58 12/14/16 13:53 O2 Sat by Pulse Oximetry (%) 97 12/14/16 09:00 Assessment/Plan IMPRESSION esrd htn left leg ischemia s/p angioplasty he is not fluid overloaded and is not hyperkalemic PLAN will order hd for tomorrow vascular surgery follow up monitor cbc since hemoglobin is dropping MV
--- NOTE | 2016-12-14 16:56 | PN ---
Progress Note (short form) - Note Progress Note: ANESTHESIOLOGY POST-OP CHECK 71M s/p LLE angiogram/plasty and SFA stent under MAC/sedation POD #1. No acute complaints. Denies: N/V and tolerating PO. Pain controlled. Vital Signs Temperature 98.6 F 12/14/16 13:53 Pulse Rate 76 12/14/16 13:53 Respiratory Rate 20 12/14/16 13:53 Blood Pressure 103/58 12/14/16 13:53 O2 Sat by Pulse Oximetry (%) 97 12/14/16 09:00 Active Medications Atorvastatin Calcium (Lipitor -) 40 mg PO HS [facility] Clopidogrel Bisulfate (Plavix -) 75 mg PO DAILY [facility] Last Admin: 12/14/16 10:10 Dose: 75 mg Collagenase (Santyl -) 1 applic TP DAILY [facility] Last Admin: 12/14/16 10:11 Dose: 1 applic Epoetin Norman (Epogen -) 3,000 units SQ ONCE ONE Stop: 12/14/16 14:31 Heparin Sodium (Porcine) (Heparin -) 5,000 unit SQ TID [facility] Last Admin: 12/14/16 14:20 Dose: 5,000 unit Heparin Sodium (Porcine) (Heparin -) 1,000 unit IVPUSH ONCE ONE Stop: 12/14/16 14:31 Insulin Aspart (Novolog Vial Sliding Scale -) 1 vial SQ ACHS [facility] PRN Reason: Protocol Last Admin: 12/14/16 12:30 Dose: 4 units Isosorbide Dinitrate (Isoditrate Er) 40 mg PO DAILY [facility] Last Admin: 12/14/16 10:11 Dose: 40 mg Lisinopril (Prinivil) 40 mg PO DAILY [facility] Last Admin: 12/14/16 10:10 Dose: 40 mg Metoprolol Tartrate (Lopressor -) 50 mg PO BID [facility] Last Admin: 12/14/16 10:10 Dose: 50 mg Non-Formulary Medication (Becaplermin [Regranex]) 15 gm TP DAILY [facility] Senna/Docusate Sodium (Pericolace -) 1 tablet PO DAILY PRN PRN Reason: CONSTIPATION Tamsulosin HCl (Flomax -) 0.4 mg PO DAILY@0830 [facility] Last Admin: 12/14/16 10:10 Dose: 0.4 mg Gen: awake, alert No apparent anesthesia complications. Pain well controlled. Continue management as per primary team.
[2016-12-15] MEDS: HEPARIN NA (PORCINE) 5,000 UNITS/ML 1ML VIAL SQ SCH ×2 (06:08→10:00)
[2016-12-15] MEDS: INSULIN SLIDING SCALE (NOVOLOG) 1 VIAL SQ SCH ×3 (06:09→18:48)
[2016-12-15] MEDS: METOPROLOL TARTRATE 50 MG TABLET (FP) PO SCH (10:41)
[2016-12-15] MEDS: CLOPIDOGREL BISULFATE 75 MG TABLET (FP) PO SCH (10:41)
[2016-12-15] MEDS: ISOSORBIDE DINITRATE 40 MG PO SCH (10:41)
[2016-12-15] MEDS: TAMSULOSIN HCL 0.4 MG CAP.ER.24H (FP) PO SCH (10:41)
[2016-12-15] MEDS: LISINOPRIL 20 MG TABLET (FP) PO SCH (10:42)
[2016-12-15 12:01] VITALS: TEMP 98.5
[2016-12-15 12:21] LABS: BASOPHIL 0.5 % (0-2.0); MCH 28.8 pg (25.7-33.7); MCHC 32.6 g/dl (32.0-35.9); MEAN CELL VOLUME 88.4 fl (80-96); MEAN PLT VOLUME 10.5 fl (7.5-11.1); NEUTROPHILS 71.2 % (42.8-82.8); PLATELET COUNT 200 K/MM3 (134-434); RDW 14.4 % (11.9-15.9); WHITE BLOOD COUNT 10.6 K/mm3 (4.0-10.0)
[2016-12-15 12:50] LABS: CALCIUM 7.4 mg/dL (8.5-10.1)
--- NOTE | 2016-12-15 12:53 | PN ---
Progress Note, Physician History of Present Illness: Pt seen and examined at bedside. He is awake and alert. He is currently on HD. - Current Medication List Current Medications: Active Medications Atorvastatin Calcium (Lipitor -) 40 mg PO HS [facility] Last Admin: 12/14/16 21:15 Dose: 40 mg Clopidogrel Bisulfate (Plavix -) 75 mg PO DAILY [facility] Last Admin: 12/15/16 10:41 Dose: Not Given Collagenase (Santyl -) 1 applic TP DAILY [facility] Last Admin: 12/14/16 10:11 Dose: 1 applic Epoetin Norman (Procrit -) 3,000 unit SQ ONCE ONE Stop: 12/15/16 13:01 Last Admin: 12/15/16 12:28 Dose: 3,000 unit Heparin Sodium (Porcine) (Heparin -) 5,000 unit SQ TID [facility] Last Admin: 12/15/16 06:08 Dose: 5,000 unit Heparin Sodium (Porcine) (Heparin -) 1,000 unit IVPUSH ONCE ONE Stop: 12/15/16 13:01 Last Admin: 12/15/16 12:28 Dose: 1,000 unit Insulin Aspart (Novolog Vial Sliding Scale -) 1 vial SQ ACHS [facility] PRN Reason: Protocol Last Admin: 12/15/16 06:09 Dose: Not Given Isosorbide Dinitrate (Isoditrate Er) 40 mg PO DAILY [facility] Last Admin: 12/15/16 10:41 Dose: Not Given Lisinopril (Prinivil) 40 mg PO DAILY [facility] Last Admin: 12/15/16 10:42 Dose: Not Given Metoprolol Tartrate (Lopressor -) 50 mg PO BID [facility] Last Admin: 12/15/16 10:41 Dose: Not Given Non-Formulary Medication (Becaplermin [Regranex]) 15 gm TP DAILY [facility] Senna/Docusate Sodium (Pericolace -) 1 tablet PO DAILY PRN PRN Reason: CONSTIPATION Tamsulosin HCl (Flomax -) 0.4 mg PO DAILY@0830 [facility] Last Admin: 12/15/16 10:41 Dose: Not Given - Objective Vital Signs: Vital Signs Temperature 98.5 F 12/15/16 11:45 Pulse Rate 87 12/15/16 12:20 Respiratory Rate 18 12/15/16 12:20 Blood Pressure 135/56 12/15/16 12:20 O2 Sat by Pulse Oximetry (%) 97 12/14/16 20:29 Constitutional: Yes: Calm Eyes: Yes: Conjunctiva Clear HENT: Yes: Atraumatic Cardiovascular: Yes: S1, S2 Respiratory: Yes: CTA Bilaterally Gastrointestinal: Yes: Soft Genitourinary: Yes: WNL Musculoskeletal: Yes: Other (extremities warm) Edema: Yes Edema: LLE: 1+, RLE: 1+ Neurological: Yes: Oriented Psychiatric: Yes: Oriented Labs: CBC, BMP 12/15/16 11:50 INR, PTT INR 1.24 (0.82-1.09) H 12/13/16 11:30 Problem List - Problems (1) Arterial occlusion due to stenosis Code(s): I77.1 - STRICTURE OF ARTERY (2) Diabetes mellitus Code(s): E11.9 - TYPE 2 DIABETES MELLITUS WITHOUT COMPLICATIONS (3) ESRD (end stage renal disease) Code(s): N18.6 - END STAGE RENAL DISEASE (4) PAD (peripheral artery disease) Code(s): I73.9 - PERIPHERAL VASCULAR DISEASE, UNSPECIFIED (5) Anemia Code(s): D64.9 - ANEMIA, UNSPECIFIED Assessment/Plan Current Medications Generic Name Dose Route Start Last Admin Trade Name Freq PRN Reason Stop Dose Admin Atorvastatin Calcium 40 mg 12/14/16 10:57 12/14/16 21:15 Lipitor - PO 40 mg HS JAZ Administration Clopidogrel Bisulfate 75 mg 12/13/16 15:30 12/15/16 10:41 Plavix - PO Not Given DAILY JAZ Collagenase 1 applic 12/14/16 10:00 12/14/16 10:11 Santyl - TP 1 applic DAILY JAZ Administration Epoetin Norman 3,000 unit 12/15/16 13:00 12/15/16 12:28 Procrit - SQ 12/15/16 13:01 3,000 unit ONCE ONE Administration Heparin Sodium (Porcine) 5,000 unit 12/13/16 22:00 12/15/16 06:08 Heparin - SQ 5,000 unit TID JAZ Administration Heparin Sodium (Porcine) 1,000 unit 12/15/16 13:00 12/15/16 12:28 Heparin - IVPUSH 12/15/16 13:01 1,000 unit ONCE ONE Administration Insulin Aspart 1 vial 12/13/16 22:00 12/15/16 06:09 Novolog Vial Sliding Scale - SQ Not Given ACHS [facility] Protocol Isosorbide Dinitrate 40 mg 12/14/16 10:00 12/15/16 10:41 Isoditrate Er PO Not Given DAILY [facility] Lisinopril 40 mg 12/14/16 10:00 12/15/16 10:42 Prinivil PO Not Given DAILY [facility] Metoprolol Tartrate 50 mg 12/13/16 22:00 12/15/16 10:41 Lopressor - PO Not Given BID [facility] Non-Formulary Medication 15 gm 12/14/16 10:00 Becaplermin [Regranex] TP DAILY [facility] Senna/Docusate Sodium 1 tablet 12/13/16 15:38 Pericolace - PO DAILY PRN CONSTIPATION Tamsulosin HCl 0.4 mg 12/14/16 08:30 12/15/16 10:41 Flomax - PO Not Given DAILY@0830 [facility] Impression 1. ESRD 2. HTN 3. DM 4. CAD 5. BPH 6. CHF 7. DFU 8. PVD Plan - HD today - cont current meds - discussed with vascular surgery - monitor BP on HD Dr Humphries
[2016-12-15] MEDS ORDERED: HEPARIN NA (PORCINE) 5,000 UNITS/ML 1ML VIAL IVPUSH ONE (13:00)
[2016-12-15] MEDS ORDERED: EPOETIN ALFA 3,000 UNIT/1 ML ML SQ ONE (13:00)
[2016-12-15 13:03] LABS: CREATININE 7.7 mg/dL (0.7-1.3)
[2016-12-15 15:26] VITALS: BP 147/64; PULSE 85
[2016-12-15] MEDS: COLLAGENASE CLOSTRIDIUM HIST. 30 GRAMS TUBE TP SCH (15:51)
--- NOTE | 2016-12-15 16:10 | PN ---
Teaching Attending Note Name of Resident: Kori Patterson ATTENDING PHYSICIAN STATEMENT I saw and evaluated the patient. I reviewed the resident's note and discussed the case with the resident. I agree with the resident's findings and plan as documented. SUBJECTIVE: no fever or chills , denies any pain in feet today OBJECTIVE: NAD CV: RRR Lungs: CTAB Ext : LLE edema ( 1+ ) , L foot is warm, with nl sensation to light touch . DP and PT pulses are not felt on both sides . R foot with purpulish/black middle toe , with TTP. nl sensation over foot. no edema over R foot . minimal purpulish color change on sole ( around 2nd, 3rd, 4th MTP joints ) also slight color change on R 2nd toe ( same as yesterday ) 71 y/o man from [place] with PMH significant for HTN , hyperlipidemia, CAD , CHF , type two diabetes, ESRD ( MWF), previous revascularization of LLE , and recent admission for R third toe dry gangrene , who presented with pain in L foot . 1- L foot acute ischemia: s/p angioplasty and stent placement 12/13. Now with detectable pulses only with doppler - cont ASA and plavix - check LE US due to edema 2- R 3rd toe dry gangrene : s/p atherectomy 12/11. -d/w Dr. Bahena will evaluate R foot before dc 3- H/o CAD : cont cardiac meds , BB , Imdur ,lisinopril , ASA and plavix cont increased dose of lipitor 40 . 3- ESRD : HD MWF HD today 4- h/o CHF : volume is managed with HD after Dr. bahena evaluation , will dc home
--- NOTE | 2016-12-15 16:48 | DS ---
Physical Exam: SUBJECTIVE: Patient seen and examined patient resting in bed NAD. Ruthy cute events. afebriel and hemodynamicallys table. states he feels well, his LE pain much improved. denies chest pain, f/c, sob, cough, abd pain, diarrhea, dysuria, bleeding. OBJECTIVE: Vital Signs Period Temp Pulse Resp BP Sys/Kidd Pulse Ox Last 24 Hr 98.1 F-99.3 F 78-95 18-20 116-159/48-93 97-97 PHYSICAL EXAM GENERAL: Awake, alert, and fully oriented, in no acute distress. HEAD: Normal with no signs of trauma. EYES: Pupils equal, round and reactive to light, extraocular movements intact, sclera anicteric, conjunctiva clear. No lid lag. EARS, NOSE, THROAT: Moist mucous membranes. NECK: supple without JVD LUNGS: Breath sounds equal, clear to auscultation bilaterally HEART: Regular rate and rhythm, normal S1 and S2 ABDOMEN: Soft, nontender, not distended, normoactive bowel sounds MUSCULOSKELETAL: No CVA tenderness. UPPER EXTREMITIES: 2+ pulses, warm, well-perfused. No peripheral edema. LOWER EXTREMITIES: LLE dopplerable DP, RLE dopplerable DP, 2nd and 3rd toe warm , light purple. no lesion. no edema. L calcaneal ulcer wrapped in clean curlex. NEUROLOGICAL: Cranial nerves II-XII grossly intact. Normal speech. PSYCHIATRIC: Cooperative. Good eye contact. Appropriate mood and affect. SKIN: Warm, dry LABS Laboratory Results - last 24 hr 12/14/16 12/14/16 12/14/16 11:34 11:35 17:22 WBC RBC Hgb Hct MCV MCHC RDW Plt Count MPV Neutrophils % Lymphocytes % Monocytes % Eosinophils % Basophils % Sodium Potassium Chloride Carbon Dioxide Anion Gap BUN Creatinine POC Glucometer 200 215 132 Random Glucose Calcium 12/14/16 12/15/16 12/15/16 21:03 05:43 11:50 WBC 10.6 H RBC 3.06 L Hgb 8.8 L Hct 27.0 L MCV 88.4 MCHC 32.6 RDW 14.4 Plt Count 200 MPV 10.5 Neutrophils % 71.2 Lymphocytes % 12.4 D Monocytes % 10.9 H Eosinophils % 5.0 H D Basophils % 0.5 Sodium Potassium Chloride Carbon Dioxide Anion Gap BUN Creatinine POC Glucometer 236 120 Random Glucose Calcium 12/15/16 11:50 WBC RBC Hgb Hct MCV MCHC RDW Plt Count MPV Neutrophils % Lymphocytes % Monocytes % Eosinophils % Basophils % Sodium 135 L Potassium 4.0 Chloride 94 L Carbon Dioxide 23 Anion Gap 18 H BUN 81 H D Creatinine 7.7 H* D POC Glucometer Random Glucose 160 H D Calcium 7.4 L HOSPITAL COURSE: Date of Admission:12/13/16 The patient is a 71 year old male with PMH of hypertension, hyperlipidemia, coronary artery disease, congestive heart failure, type two diabetes, ESRD ( dialysis MWF), previous revascularization of LLE (Dr. Hall), discharged from an inpatient admission yesterday after RLE revascularization, who presented to the ED after he noted left lower extremity numbness and decreased skin temperature below the left knee the morning of presentation. He denied pain. He denies palpitations. He was dialyzed the day before. He was admitted for L foot acute ischemia and received angioplasty and stent placement 12/[address] Hall. After he had dopplerable pulses b/l. He was on hep drip post op and was sent home in stable condition to f/u with Dr Hall on Thu. His lipitor was increased to 40. He had HD on date of d/c Date of Discharge: 12/15/16 Minutes to complete discharge: 48 (na) Discharge Summary Reason For Visit: PAD,ARTERIAL OCCLUSION DUE TO STENOSIS Current Active Problems Arterial occlusion due to stenosis (Acute) Diabetes mellitus (Acute) ESRD (end stage renal disease) (Acute) PAD (peripheral artery disease) (Acute) Condition: Good - Instructions Diet, Activity, Other Instructions: You were in the hospital because of pain in your right leg. Dr Hall did a procedure to open up your arteries in left leg and placed a stent. Please take plavix at home every day. Instead of simvastatin 20, take lipitor 40 mg at night daily. Resume all other home medication. Follow up with Dr Hall in his office this Thursday [phone] Frey in 1 week. Return to hospital if symptoms worsen. Referrals: Kanu Hall MD [Staff Physician] - 1 Week Omari Humphries MD [Staff Physician] - 1 Week Disposition: VNS/HOME HEALTH CARE - Home Medications Comprehensive Discharge Medication List: Ambulatory Orders Clopidogrel Bisulfate [Plavix -] 75 mg PO DAILY 10/29/15 Aspirin [Indra Chewable Aspirin] 81 mg PO DAILY #30 tab.chew 11/08/15 Isosorbide Dinitrate [Isoditrate ER] 40 mg PO DAILY #30 tablet.er 11/08/15 Metoprolol Tartrate [Lopressor -] 50 mg PO BID #30 tablet 11/08/15 Tamsulosin HCl 0.4 mg PO DAILY #30 cap.er.24h 11/08/15 Glipizide 2.5 mg PO DAILY #30 tablet 11/23/15 Sennosides/Docusate Sodium [Senna S Tablet] 1 each PO DAILY PRN 11/28/15 Lisinopril [Prinivil] 40 mg PO DAILY #30 tablet 08/19/16 Becaplermin [Regranex] 15 gm TP DAILY #1 gel..gram. 10/17/16 Collagenase Clostridium Hist. [Santyl -] 1 applic TP DAILY 12/08/16 Diphenhydramine HCl [Benadryl Capsule -] 25 mg PO Q6H 12/08/16 Famotidine [Pepcid] 20 mg PO PRN 12/08/16 Atorvastatin Ca [Lipitor] 40 mg PO HS #30 tablet 12/15/16 Problem List - Problems (1) Arterial occlusion due to stenosis Code(s): I77.1 - STRICTURE OF ARTERY (2) Diabetes mellitus Code(s): E11.9 - TYPE 2 DIABETES MELLITUS WITHOUT COMPLICATIONS (3) ESRD (end stage renal disease) Code(s): N18.6 - END STAGE RENAL DISEASE (4) PAD (peripheral artery disease) Code(s): I73.9 - PERIPHERAL VASCULAR DISEASE, UNSPECIFIED (5) Acute on chronic combined systolic and diastolic CHF, NYHA class 4 Code(s): I50.43 - ACUTE ON CHRONIC COMBINED SYSTOLIC AND DIASTOLIC HRT FAIL (6) BPH (benign prostatic hypertrophy) Code(s): N40.0 - BENIGN PROSTATIC HYPERPLASIA WITHOUT LOWER URINRY TRACT SYMP (7) Chronic kidney disease (CKD) Code(s): N18.9 - CHRONIC KIDNEY DISEASE, UNSPECIFIED Qualifiers: Chronic kidney disease stage: stage 3 (moderate) Qualified Code(s): N18.3 - Chronic kidney disease, stage 3 (moderate) (8) Coronary artery disease Code(s): I25.10 - ATHSCL HEART DISEASE OF [place] CORONARY ARTERY W/O ANG PCTRS (9) Diabetic foot ulcers Code(s): E11.621 - TYPE 2 DIABETES MELLITUS WITH FOOT ULCER L97.509 - NON-PRESSURE CHRONIC ULCER OTH PRT UNSP FOOT W UNSP SEVERITY Qualifiers: Diabetes mellitus type: type 2 Laterality: left (10) Hyperlipidemia Code(s): E78.5 - HYPERLIPIDEMIA, UNSPECIFIED Qualifiers: Hyperlipidemia type: unspecified Qualified Code(s): E78.5 - Hyperlipidemia, unspecified (11) Hypertension Code(s): I10 - ESSENTIAL (PRIMARY) HYPERTENSION (12) Paroxysmal a-fib Code(s): I48.0 - PAROXYSMAL ATRIAL FIBRILLATION (13) Renal failure Code(s): N19 - UNSPECIFIED KIDNEY FAILURE This patient is new to me today: No Emergency Visit: Yes ED Registration Date: 12/13/16 Care time: The patient presented to the Emergency Department on the above date and was hospitalized for further evaluation of their emergent condition. Critical Care patient: No - Discharge Referral Referred to [facility] Med P.C.: No
[2016-12-15] MEDS ORDERED: INSULIN (NOVOLOG) ASPART 100 UNITS/ML 10ML VIAL ONE (18:21)
--- NOTE | 2017-01-15 15:33 | OP ---
DATE OF OPERATION: 12/13/2016 PREOPERATIVE DIAGNOSIS: Left lower extremity ischemia. OPERATION: Aortogram, left lower extremity angiogram superficial femoral artery drug-coated balloon angioplasty with stent, anterior and posterior tibial artery angioplasty. POSTOPERATIVE DIAGNOSIS: Left lower extremity ischemia. SURGEON: Kanu Harper D.O. ANESTHESIA: Fractional. BLOOD LOSS: 50 mL. INDICATION: The patient is a patient that has a significant left lower extremity claudication and now at home had lots of pain. At this point it was thought that he would need an angiogram of the left lower extremity, understanding all risks, benefits, and alternatives. DESCRIPTION OF PROCEDURE: Once patient consented for the procedure, patient was brought into the operating room and laid on operating room table in a supine manner, and the area of the left and right groin are prepped and draped in a sterile surgical manner. We then went ahead and injected 10 mL of lidocaine 1% over the right common femoral artery. We then went ahead and took a Micropuncture needle and punctured the right common femoral artery. A Micropuncture wire was inserted, and a traditional 5-Mal[place] sheath was inserted. We then placed 0.035 floppy guidewire up into the aorta followed by an Omniflush catheter. We then shot an aortogram by hand injection showing that the aorta and the iliac arteries were without any disease. We then placed our 0.035 floppy guidewire up and over and Omniflush catheter followed. We then shot an angiogram of the left lower extremity showing that the common femoral artery and the profunda were patent. The mid proximal aspect was patent, but the mid to distal SFA was occluded, and the stent was occluded, and it came back into popliteal artery. Patient also had severe disease of his anterior and posterior tibial arteries as well. At this point, we placed 0.035 stiff guidewire into the SFA, removed the Omniflush catheter, and placed a 6 x 45 crossover sheath. 5000 units of IV heparin were administered to the patient. We then brought our Quick-Cross catheter down and were selectively using the Quick-Cross catheter we were able to selectively cross the SFA lesion into the popliteal artery and place a wire into the posterior tibial artery. At this point, we went ahead and used a 6 x 150 drug-coated balloon and ballooned our lesion in the SFA. Once that was completed, we shot an angiogram showing that the lesion had recoil and was dissected, and we went ahead and placed a 6 x 8 live stent, and that was ballooned in place using a 5 x 150 balloon. We then went ahead and brought our wire down into the tibial arteries. We were able to use an 0 and 4 wire and placed it to the anterior tibial artery all the way down to the foot, and we used a 2 x 220 balloon and performed angioplasty of the entire anterior tibial. We then placed a wire into the posterior tibial and used a 2 x 220 balloon and performed angioplasty of the entire posterior tibial. Completion angiogram now showed that the flow as brisk, the lesion in the SFA was a full fit. The anterior and posterior tibial arteries were patent, and everything went well. At this point, at this point in the right common femoral artery, pressure was held for 5 minutes was placed. Patient tolerated the procedure with no complications. KANU HARPER DO [id number]
== END 2016-12-15 19:05 | disposition home health service (06) | DRG 173 ==
LOC: JER 10:14 → JERBED 11:25 → J4S 18:00
PROVIDERS: ADMIT Internal Medicine; ATTEND Internal Medicine
PROC: 047Q3ZZ Dilation of Left Anterior Tibial Artery, Percutaneous Approach (ICD-10-PCS; 2016-12-13)
PROC: 047S3ZZ Dilation of Left Posterior Tibial Artery, Percutaneous Approach (ICD-10-PCS; 2016-12-13)
PROC: B40GYZZ Plain Radiography of Left Lower Extremity Arteries using Other Contrast (ICD-10-PCS; 2016-12-13)
PROC: 047L34Z Dilation of Left Femoral Artery with Drug-eluting Intraluminal Device, Percutaneous Approach (ICD-10-PCS; principal; 2016-12-13 14:00)
PROC: 5A1D00Z (ICD-10-PCS; 2016-12-15)
DX: I97.89 Other postprocedural complications and disorders of the circulatory system, not elsewhere classified (principal); E11.52 Type 2 diabetes mellitus with diabetic peripheral angiopathy with gangrene; I99.8 Other disorder of circulatory system; I25.10 Atherosclerotic heart disease of native coronary artery without angina pectoris; I10 Essential (primary) hypertension; E78.00 Pure hypercholesterolemia, unspecified; N40.0 Benign prostatic hyperplasia without lower urinary tract symptoms; I13.2 Hypertensive heart and chronic kidney disease with heart failure and with stage 5 chronic kidney disease, or end stage renal disease; E11.22 Type 2 diabetes mellitus with diabetic chronic kidney disease; N18.6 End stage renal disease; I50.9 Heart failure, unspecified; Z99.2 Dependence on renal dialysis; Y83.8 Other surgical procedures as the cause of abnormal reaction of the patient, or of later complication, without mention of misadventure at the time of the procedure; Z95.5 Presence of coronary angioplasty implant and graft; Z87.891 Personal history of nicotine dependence
CPT/HCPCS: 36415; 76000-TC; 80048; 80053; 83605; 85025; 85610; 85730; 86850; 86900; 86901; 93971-TC; 94760; 99284-25; J0885; J1644

== ENCOUNTER 2017-01-21 09:42 | Day surgery (SDC) | payer OTHER ==
[2017-01-20 18:12] VITALS: BMI 27.4
[2017-01-21 10:03] LABS: BASOPHIL 0.6 % (0-2.0); EOSINOPHIL 12.7 % (0-4.5); MCH 29.3 pg (25.7-33.7); MCHC 32.6 g/dl (32.0-35.9); MEAN CELL VOLUME 89.9 fl (80-96); MEAN PLT VOLUME 9.6 fl (7.5-11.1); NEUTROPHILS 63.2 % (42.8-82.8); PLATELET COUNT 245 K/MM3 (134-434); RDW 14.9 % (11.9-15.9); WHITE BLOOD COUNT 9.6 K/mm3 (4.0-10.0)
[2017-01-21 10:34] LABS: INR 1.16 (0.82-1.09); PROTHROMBIN TIME (PATIENT) 12.8 SEC (9.98-11.88)
[2017-01-21 10:39] LABS: ALBUMIN 3.3 g/dl (3.4-5.0); BILIRUBIN,TOTAL 0.3 mg/dL (0.2-1.0); CALCIUM 7.5 mg/dL (8.5-10.1); COCKROFT - GAULT 12.16; CREATININE 5.9 mg/dL (0.7-1.3); TOT PROT 6.2 g/dl (6.4-8.2)
[2017-01-21] MEDS ORDERED: MIDAZOLAM HCL 2 MG/2 ML SINGLE DOSE VIAL ONE ×2 (11:17→12:09)
[2017-01-21] MEDS ORDERED: PROPOFOL 20 ML ONE ×2 (11:17)
[2017-01-21] MEDS ORDERED: ONDANSETRON 4 MG/2 ML VIAL IVPUSH PRN (11:21)
[2017-01-21] MEDS ORDERED: HEPARIN NA (PORCINE) 5,000 UNITS/ML 1ML VIAL ONE ×4 (11:32→13:19)
[2017-01-21] MEDS ORDERED: ceFAZolin SODIUM 1 GM VIAL ONE (11:35)
[2017-01-21] MEDS ORDERED: LIDOCAINE HCL 1%, 10 MG/ML (20ML VIAL) ONE (11:37)
[2017-01-21] MEDS ORDERED: ceFAZolin SODIUM 1 GM VIAL IVPB ONE (11:40)
--- NOTE | 2017-01-21 13:39 | OP ---
Operative Note - Note: Operative Date: 01/21/17 Pre-Operative Diagnosis: Right toe gangrene Operation: Aortogram, RLE angiogram, Anterior tibial, posterior tibial artery angioplasty Findings: Occlusion of anterior tibial artery Post-Operative Diagnosis: Same as Pre-op Surgeon: Kanu Hall Anesthesia: Fractional Estimated Blood Loss (mls): 75 Operative Report Dictated: Yes
--- NOTE | 2017-01-21 13:42 | HP ---
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; PAD) Renal/: Yes: Renal Inusuff, BPH Heme/Onc: Yes: Anemia - Past Surgical History Past Surgical History: Yes: AV Fistula/Graft - Smoking History Smoking history: Former smoker Have you smoked in the past 12 months: No Aproximately how many cigarettes per day: 6 If you are a former smoker, when did you quit?: 2 YRS - Alcohol/Substance Use Hx Alcohol Use: No History of Substance Use: reports: None - Social History ADL: Family Assistance History of Recent Travel: No Home Medications - Allergies Allergies/Adverse Reactions: Allergies Allergy/AdvReac Type Severity Reaction Status Date / Time No Known Allergies Allergy Verified 01/21/17 10:23 - Home Medications Home Medications: Ambulatory Orders Clopidogrel Bisulfate [Plavix -] 75 mg PO DAILY 10/29/15 Aspirin [Indra Chewable Aspirin] 81 mg PO DAILY #30 tab.chew 11/08/15 Isosorbide Dinitrate [Isoditrate ER] 40 mg PO DAILY #30 tablet.er 11/08/15 Metoprolol Tartrate [Lopressor -] 50 mg PO BID #30 tablet 11/08/15 Tamsulosin HCl 0.4 mg PO DAILY #30 cap.er.24h 11/08/15 Glipizide 2.5 mg PO DAILY #30 tablet 11/23/15 Sennosides/Docusate Sodium [Senna S Tablet] 1 each PO DAILY PRN 11/28/15 Lisinopril [Prinivil] 40 mg PO DAILY #30 tablet 08/19/16 Becaplermin [Regranex] 15 gm TP DAILY #1 gel..gram. 10/17/16 Collagenase Clostridium Hist. [Santyl -] 1 applic TP DAILY 12/08/16 Diphenhydramine HCl [Benadryl Capsule -] 25 mg PO Q6H 12/08/16 Famotidine [Pepcid] 20 mg PO PRN 12/08/16 Atorvastatin Ca [Lipitor] 40 mg PO HS #30 tablet 12/15/16 Physical Examination Vital Signs: Vital Signs Temperature 98.2 F 01/21/17 10:25 Pulse Rate 81 01/21/17 10:25 Respiratory Rate 17 01/21/17 10:25 Blood Pressure 141/71 01/21/17 10:25 O2 Sat by Pulse Oximetry (%) 99 01/21/17 10:25 Constitutional: Yes: Well Nourished Eyes: Yes: WNL HENT: Yes: WNL Neck: Yes: WNL Cardiovascular: Yes: WNL Respiratory: Yes: WNL Gastrointestinal: Yes: WNL Extremities: Yes: WNL Edema: No Integumentary: Yes: WNL Neurological: Yes: WNL Labs: CBC, BMP 01/21/17 09:52 01/21/17 09:52 Assessment/Plan Right foot gangrene 1. For angiogram today
[2017-01-21] MEDS ORDERED: CLOPIDOGREL BISULFATE 75 MG TABLET (FP) PO ONE (14:13)
[2017-01-21 14:21] VITALS: TEMP 98.2
[2017-01-21 15:11] VITALS: BP 140/74; PULSE 88
--- NOTE | 2017-02-13 18:53 | OP ---
DATE OF OPERATION: 01/21/2017 PREOPERATIVE DIAGNOSIS: Right toe gangrene. POSTOPERATIVE DIAGNOSIS: Right toe gangrene. PROCEDURE: Aortogram right lower extremity angiogram, anterior tibial artery, posterior tibial artery, angioplasty. FINDINGS: Occlusion of anterior tibial artery. ANESTHESIA: Fractional. ESTIMATED BLOOD LOSS: 75 mL. DESCRIPTION OF PROCEDURE: The patient is a 71-year-old male that comes in to [facility] the night before complaining of changing color in his right great toe with gangrene. Patient was evaluated and it was felt he would need an angiogram. Patient was consented for the procedure, understanding all risks, benefits, and alternatives and then taken to the operating room. Once in the operating room, he was laid on the operating table in a supine manner, and the area of the right and left groin are prepped and draped in a sterile surgical manner. We then injected 10 mL of lidocaine 1% over the left common femoral artery. We then took our Micropuncture needle and punctured the left common femoral artery. A Micropuncture wire was inserted, and Micropuncture sheath was inserted, and an additional 5-English sheath was inserted. A 0.035 floppy guidewire was placed into the aorta followed by an Omniflush catheter. We then shot an aortogram by hand injection showing that the aorta were without any disease. We then placed 0.035 stiff guidewire up and over to the right common femoral artery and Omniflush catheter followed. We then shot an angiogram of the right lower extremity showing the common femoral artery, the profunda artery were patent, and the SFA were patent, the popliteal artery was patent. Patient had an occlusion of the proximal anterior tibial artery and the artery reconstituted in the mid to distal calf and to the foot. Posterior tibial artery had a bunch of stenotic lesions as well and significant stenotic lesions of 80% to 90% and was also running into the foot. At this point, we placed a 0.035 stiff guidewire down into the SFA. We then removed Omniflush catheter. We placed a 6 x 45 crossover sheath. We then administered 5000 units of IV heparin. We then used a Quick-Cross catheter and we were able to selectively cannulate into the anterior tibial artery and we were able to cross the occlusion and place the wire into the foot. We then exchanged for a 0.14 pilot teacher wire. We then used a 2.5 x 220 tibial artery balloon and performed tibial angioplasty of the entire anterior tibial artery. Completion angiogram now showed that the anterior tibial artery was completely patent going into the foot. We then selectively cannulated using our 0.14 wire into the posterior tibial artery, and we were able to get the wire down into the distal posterior tibial artery. We then used a 2.5 x 220 balloon to perform angioplasty of the posterior tibial artery. Completion angiogram now showed that both arteries, anterior tibial artery and posterior artery were patent, and there was good runoff into the foot. At this point, we brought our sheath up and over deployed in the left common femoral artery. Areas were then dried, applied pressure for less than 5 minutes. The area was then dried, and Dermabond was placed. Patient tolerated the procedure without complications. Patient was transferred to PACU in stable condition. KIRILL HARPER DO [id number]
== END 2017-01-21 14:30 | disposition home or self-care (01) ==
LOC: JASU-SURG 09:42
PROVIDERS: ATTEND Surgery Vascular Surgery
PROC: 047R3ZZ Dilation of Right Posterior Tibial Artery, Percutaneous Approach (ICD-10-PCS; 2017-01-21)
PROC: 047P3ZZ Dilation of Right Anterior Tibial Artery, Percutaneous Approach (ICD-10-PCS; principal; 2017-01-21 11:30)
DX: I96 Gangrene, not elsewhere classified (principal); I12.0 Hypertensive chronic kidney disease with stage 5 chronic kidney disease or end stage renal disease; N18.6 End stage renal disease; I50.9 Heart failure, unspecified; I25.10 Atherosclerotic heart disease of native coronary artery without angina pectoris; Z99.2 Dependence on renal dialysis
CPT/HCPCS: 37228; C1725; 36415; 76000-TC; 80053; 85025; 85610; 94760; J1644